=== PATIENT | female | born 1975 | race Caucasian/White ===

== ENCOUNTER 2018-10-18 06:13 | Emergency (ER) | payer BC ==
[2018-10-18 06:20] VITALS: RESP 18
--- NOTE | 2018-10-18 06:33 | ED ---
Chest Pain HPI - General Source: patient Mode of arrival: wheelchair Limitations: no limitations <Eduardo Anguiano - Last Filed: 10/18/18 06:31> - General Source: RN notes reviewed, old records reviewed <Kyler Mesa - Last Filed: 10/18/18 11:11> - General Chief Complaint: Chest Pain Stated Complaint: palpitations Time Seen by Provider: 10/18/18 06:31 - History of Present Illness Initial Comments: 43-year-old female presenting for evaluation of palpitations and chest tightness. Patient's symptoms began this morning, woke patient from sleep. She felt pounding in her ears, checked her pulse noted that it was quite elevated. She did report some mild chest tightness associated with this palpitation. No radiating chest pain. No arm pain. No jaw pain. No abdominal pain. No nausea vomiting. Patient denies any preceding symptoms, recent illnesses. She has history of hypertension currently on losartan. She also has history of sleep apnea reports that she was sleeping on her back when she awoke with this episode. She does not normally sleep on her back. (Kyler Mesa) - Related Data Home Medications Medication Instructions Recorded Confirmed Ibuprofen [Motrin Ib] 200 - 400 mg PO Q6HR PRN 10/18/18 10/18/18 Losartan Potassium [Cozaar] 25 mg PO HS 10/18/18 10/18/18 Multivitamins, Thera [Multivitamin 1 tab PO DAILY 10/18/18 10/18/18 (formulary)] Sertraline [Zoloft] 50 mg PO HS 10/18/18 10/18/18 Allergies Allergy/AdvReac Type Severity Reaction Status Date / Time levofloxacin [From Levaquin] AdvReac Unknown Verified 10/18/18 07:36 meperidine [From Demerol] AdvReac Rash/Hives Verified 10/18/18 07:36 ondansetron [From Zofran] AdvReac Unknown Verified 10/18/18 07:36 Review of Systems ROS Other: All systems not noted in ROS Statement are negative. <Eduardo Anguiano - Last Filed: 10/18/18 06:31> ROS Other: All systems not noted in ROS Statement are negative. <Kyler Mesa - Last Filed: 10/18/18 11:11> ROS Statement: Those systems with pertinent positive or pertinent negative responses have been documented in the HPI. EKG Findings - EKG Comments: EKG Findings:: EKG: Normal sinus rhythm, rate of 97, WV interval 158, QRS duration 86, QTC 431, no ST segment changes, there is T-wave inversion in V3 otherwise T waves are upright. <BonitaKyler Cristy - Last Filed: 10/18/18 11:11> Past Medical History Past Medical History: Hypertension Additional Past Medical History / Comment(s): degenerative disc disease, History of Any Multi-Drug Resistant Organisms: None Reported Past Surgical History: Back Surgery, Section, Cholecystectomy Past Psychological History: No Psychological Hx Reported Smoking Status: Never smoker Past Alcohol Use History: Rare Past Drug Use History: None Reported <Eduardo Anguiano - Last Filed: 10/18/18 06:31> General Exam Limitations: no limitations <Eduardo Anguiano - Last Filed: 10/18/18 06:31> General appearance: alert, in no apparent distress Head exam: Present: atraumatic, normocephalic Eye exam: Present: normal appearance, PERRL ENT exam: Present: normal exam Neck exam: Present: normal inspection. Absent: tenderness, meningismus Respiratory exam: Present: normal lung sounds bilaterally. Absent: respiratory distress, wheezes Cardiovascular Exam: Present: regular rate, normal rhythm, systolic murmur GI/Abdominal exam: Present: soft. Absent: distended, tenderness, guarding Extremities exam: Present: normal capillary refill. Absent: pedal edema, calf tenderness Neurological exam: Present: alert, oriented X3, CN II-XII intact, motor sensory deficit Psychiatric exam: Present: normal affect, normal mood Skin exam: Present: warm, dry, intact. Absent: cyanosis, diaphoretic <Kyler Mesa - Last Filed: 10/18/18 11:11> Course <Eduardo Anguiano - Last Filed: 10/18/18 06:31> <Kyler Mesa - Last Filed: 10/18/18 11:11> Vital Signs 10/18/18 10/18/18 06:15 10:57 Temperature 98.3 F 98.1 F Pulse Rate 99 85 Respiratory 18 18 Rate Blood Pressure 160/87 152/81 O2 Sat by Pulse 98 97 Oximetry - Reevaluation(s) Reevaluation #1: 10/18/18 06:31 INR 2 Patient care, I did review the ECG, the history, and ordered some initial tests. (MadieEduardo waterman) Chest Pain [facility] <MadieEduardo waterman - Last Filed: 10/18/18 06:31> <Kyler Mesa - Last Filed: 10/18/18 11:11> - MDM 43-year-old female history hypertension presenting with an episode of palpitations. Patient did not have chest pain, she reports some mild chest tightness. Symptoms completely resolved at the time of my evaluation. No dyspnea. EKG is normal sinus rhythm. Chest x-ray negative for any acute cardiopulmonary findings. Normal CBC, normal CMP, troponin negative. D-dimer mildly elevated 0.69. Normal CT angiography with no pulmonary embolism. I did discuss possibility of arrhythmia and offered observation, patient declined. Recommend patient present with her primary care physician for both tire recapper and possible sleep study given the onset of this symptoms. I did also discuss weight loss with this patient. She will monitor symptoms at home or return with worsening or changing symptoms (Kyler Mesa) Disposition <MadiecolumbaEduardo - Last Filed: 10/18/18 06:31> Is patient prescribed a controlled substance at d/c from ED?: No Time of Disposition: 10:10 <Kyler Mesa - Last Filed: 10/18/18 11:11> Clinical Impression: Palpitations Disposition: HOME SELF-CARE Condition: Good Instructions (If sedation given, give patient instructions): Heart Palpitations (ED) Additional Instructions: Patient will follow-up with primary care physician regarding possible tire recapper, possible sleep study. Referrals: Adilson Zhou MD [Primary Care Provider] - 1-2 days
[2018-10-18 07:02] LABS: Basophils # (A) 0.1 k/uL (0-0.2); Basophils % (A) 1 %; Eosinophils # (A) 0.5 k/uL (0-0.7); Eosinophils % (A) 5 %; HCT 42.3 % (34.0-46.0); HGB 13.7 gm/dL (11.4-16.0); Lymphocytes % (A) 20 %; MCHC 32.5 g/dL (31.0-37.0); MCV 95.5 fL (80.0-100.0); Mean Platelet Volume 7.3; Monocytes # (A) 0.6 k/uL (0-1.0); Monocytes % (A) 6 %; Neutrophils # (A) 6.7 k/uL (1.3-7.7); Neutrophils % (A) 67 %; Platelet Count 246 k/uL (150-450); RBC 4.43 m/uL (3.80-5.40); RDW 12.4 % (11.5-15.5)
[2018-10-18 07:17] LABS: ALT 31 U/L (9-52); AST 18 U/L (14-36); Alkaline Phosphatase 120 U/L (38-126); Anion Gap 8 mmol/L; Blood Urea Nitrogen 14 mg/dL (7-17); Calcium 9.6 mg/dL (8.4-10.2); Carbon Dioxide 30 mmol/L (22-30); Chloride 103 mmol/L (98-107); Glucose 120 mg/dL (74-99); Potassium 3.9 mmol/L (3.5-5.1); Sodium 141 mmol/L (137-145); Total Bilirubin 0.3 mg/dL (0.2-1.3); Total Protein 7.1 g/dL (6.3-8.2)
[2018-10-18 07:28] LABS: INR 0.8 (<1.2); Partial Thromboplastin Time 24.3 sec (22.0-30.0); Prothrombin Time 9.4 sec (9.0-12.0)
--- NOTE | 2018-10-18 08:10 | XR ---
EXAMINATION TYPE: XR chest 2V DATE OF EXAM: 10/18/2018 COMPARISON: 10/22/2009 INDICATION: Tachycardia TECHNIQUE: Frontal and lateral views of the chest are obtained. FINDINGS: The heart size is normal. The pulmonary vasculature is normal. The lungs are clear. IMPRESSION: 1. No acute pulmonary process.
[2018-10-18 08:42] LABS: D-Dimer 0.69 mg/L FEU (<0.60)
--- NOTE | 2018-10-18 09:35 | CT ---
CT CHEST FOR PULMONARY EMBOLISM. EXAMINATION TYPE: CT angio chest DATE OF EXAM: 10/18/2018 INDICATION: chest heaviness, palpitations CT DLP: 981.6 mGycm, Automated exposure control for dose reduction was used. CONTRAST: Patient injected with 100 mL of Isovue 370. COMPARISON: None TECHNIQUE: CT of the chest is performed on a spiral scan at 2 mm thick sections. Study is performed with intravenous contrast timed for evaluation for pulmonary embolism. This will limit additional po rtions of the evaluation. 3-D MIP images reconstructed by the technologist are reviewed on the compu ter in the coronal and sagittal planes. FINDINGS: No persistent filling defects are evident to suggest an acute pulmonary embolism. No mediastinal or hilar adenopathy enlarged by CT criteria is evident. The ascending aorta diameter at the level of the main pulmonary artery is 3.9 cm. The main pulmonary artery diameter at the bifur cation is 3.9 cm. Normal right heart strain is evident. Lung windows are clear. Limited CT section through the upper abdomen are unremarkable. IMPRESSIONS: 1. No acute pulmonary embolism.
[2018-10-18 11:03] VITALS: BP 152/81; PULSE 85; TEMP 98.1
== END 2018-10-18 11:03 | disposition home or self-care (01) ==
LOC: EC 06:13
DX: R00.2 Palpitations (principal); R07.89 Other chest pain; I10 Essential (primary) hypertension; Z79.899 Other long term (current) drug therapy; Z88.1 Allergy status to other antibiotic agents; Z88.5 Allergy status to narcotic agent; Z88.8 Allergy status to other drugs, medicaments and biological substances
CPT/HCPCS: 36415; 71046; 71275; 80053; 83735; 84484; 85025; 85379; 85610; 85730; 93005; 99285

== ENCOUNTER 2018-11-22 20:29 | Emergency (ER) | payer BC, OTHER ==
[2018-11-22 20:42] VITALS: RESP 18; TEMP 98.8
[2018-11-22 22:50] VITALS: BP 151/89; PULSE 80
--- NOTE | 2018-11-22 22:55 | US ---
EXAM: US Right Lower Extremity Non-Vascular - ultrasound right calf limited CLINICAL HISTORY: Reason: Pain, possible abscess, R calf TECHNIQUE: Real-time ultrasound scan of the right calf area of clinical concern with image documentation. COMPARISON: None available FINDINGS: Imaging in area of clinical concern about the right calf demonstrates small superficial fluid collection in the subcutaneous soft tissues measuring 1.0 x 0.4 x 0.4 cm. IMPRESSION: Small superficial subcutaneous fluid collection which may reflect small hematoma/seroma or possible abscess. Clinical correlation is recommended. <MYCVCSECTION> Critical Value Communications 11/22/18 23:00 Verify Receipt Verified receipt with NAVDEEP MEJIA in the ER for Dr. LOPEZ on 11/22 22:59 (-04:00)
--- NOTE | 2018-11-23 00:21 | ED ---
Animal Bite HPI - General Chief Complaint: Animal Bite Stated Complaint: Dog Bite Time Seen by Provider: 11/22/18 21:06 Source: patient Mode of arrival: ambulatory Limitations: no limitations - History of Present Illness Initial Comments: This patient's a 43-year-old woman who presents to be evaluated for dog bite to the right calf. The patient states the bite occurred 4 days ago. 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 The dog has had vaccinations. The patient did go and have evaluation by the urgent care. She was started on Augmentin. She went for a recheck, and as her leg was still swollen Bactrim was added at that point. It was also recommended to the patient that she be seen about having drainage of a possible abscess or hematoma. The patient states that she called 2 of the local surgeons who stated that they could not see her she therefore presents here. The patient denies any systemic symptoms, including no fever or chills, no palpitations, chest pain or dyspnea. The patient has had some drainage that she feels may be purulent. MD Complaint: animal bite -: days(s) Location: other (Right calf) Right: Leg Animal: dog Description: household pet, immunizations UTD, appeared well Mechanism: bite Pain Description: constant Context: other - Related Data Home Medications Medication Instructions Recorded Confirmed Ibuprofen [Motrin Ib] 200 - 400 mg PO Q6HR PRN 10/18/18 11/22/18 Losartan Potassium [Cozaar] 25 mg PO HS 10/18/18 11/22/18 Multivitamins, Thera [Multivitamin 1 tab PO DAILY 10/18/18 11/22/18 (formulary)] Sertraline [Zoloft] 50 mg PO HS 10/18/18 11/22/18 Albuterol Nebulized (Conc) 2.5 mg INHALATION RT-Q4H PRN 11/22/18 11/22/18 [Ventolin Nebulized (Conc)] Amoxic-Pot Clav 875-125Mg 1 tab PO BID 11/22/18 11/22/18 [Augmentin 875-125] Sulfamethox-Tmp 800-160Mg [Bactrim 1 tab PO BID 11/22/18 11/22/18 DS 800-160 mg] Allergies Allergy/AdvReac Type Severity Reaction Status Date / Time levofloxacin [From Levaquin] AdvReac Unknown Verified 11/22/18 20:56 meperidine [From Demerol] AdvReac Rash/Hives Verified 11/22/18 20:56 ondansetron [From Zofran] AdvReac Unknown Verified 11/22/18 20:56 Review of Systems ROS Statement: Those systems with pertinent positive or pertinent negative responses have been documented in the HPI. ROS Other: All systems not noted in ROS Statement are negative. Constitutional: Denies: fever, chills, weakness Respiratory: Denies: dyspnea Cardiovascular: Denies: chest pain, palpitations, edema, syncope Gastrointestinal: Denies: abdominal pain, vomiting Skin: Reports: as per HPI, lesions (Dog bite right calf) Past Medical History Past Medical History: Hypertension Additional Past Medical History / Comment(s): degenerative disc disease, History of Any Multi-Drug Resistant Organisms: None Reported Past Surgical History: Back Surgery, Section, Cholecystectomy Past Psychological History: No Psychological Hx Reported Smoking Status: Never smoker Past Alcohol Use History: Rare Past Drug Use History: None Reported General Exam Limitations: no limitations General appearance: alert, in no apparent distress Head exam: Present: atraumatic, normocephalic Respiratory exam: Present: normal lung sounds bilaterally. Absent: respiratory distress, wheezes, rales, rhonchi, stridor Cardiovascular Exam: Present: regular rate, normal rhythm, normal heart sounds Extremities exam: Present: tenderness Skin exam: Present: warm, dry, other (Patient does have 2 puncture wounds to the posterior aspect of the right calf. There is also small amount of ecchymosis. The area does have small amount of warmth but is not really erythematous. I was not able to express any drainage.) Course Vital Signs 11/22/18 11/22/18 20:31 22:49 Temperature 98.8 F Pulse Rate 88 80 Respiratory 18 18 Rate Blood Pressure 154/69 151/89 O2 Sat by Pulse 96 99 Oximetry Medical Decision Making - Medical Decision Making Patient is a 43-year-old woman who has had a dog bite to the right leg. Examination does reveal that there is a trace of warmth in the area overlying the bite but there is no erythema, and I was not able to express any purulent drainage. The patient had a bedside ultrasound that shows a very tiny fluid collection, the differential being a hematoma, seroma, or possible abscess. The area of the fluid collection is very small and I do not feel that it could be easily incised, and the patient is in agreement with this course At this point we'll have the patient use warm compresses to see if the fluid normal mobile acid surface. Also continue the double coverage of the antibiotics. We discussed appropriate further care and follow-up as well as return parameters. Disposition Clinical Impression: Dog bite, Abscess Disposition: HOME SELF-CARE Condition: Fair Instructions (If sedation given, give patient instructions): Animal Bite (ED) Is patient prescribed a controlled substance at d/c from ED?: No Referrals: Adilson Zhou MD [Primary Care Provider] - 1-2 days
== END 2018-11-23 00:39 | disposition home or self-care (01) ==
LOC: EC 20:29
DX: L02.415 Cutaneous abscess of right lower limb (principal); I10 Essential (primary) hypertension; Z88.1 Allergy status to other antibiotic agents; Z88.5 Allergy status to narcotic agent; Z88.8 Allergy status to other drugs, medicaments and biological substances; Z79.899 Other long term (current) drug therapy; W54.0XXA Bitten by dog, initial encounter; Y92.69 Other specified industrial and construction area as the place of occurrence of the external cause
CPT/HCPCS: 99283

== ENCOUNTER 2020-11-16 21:09 | Emergency (ER) | payer BC ==
--- NOTE | 2020-11-16 23:25 | ED ---
SOB HPI - General Chief Complaint: Shortness of Breath Stated Complaint: Covid+ Time Seen by Provider: 11/16/20 22:50 Source: patient Mode of arrival: wheelchair Limitations: no limitations - History of Present Illness Initial Comments: This patient is a 45-year-old woman who presents with a constellation of symptoms related to run a virus infection. The patient states that on November 09 she started having some body aches, fever, chills, cough. She has also subsequently had some diarrhea, including 3 bowel movements today. The patient states that she was feeling more fatigue and shortness of breath and phoned the distillation operator helper physician who recommended she be evaluated in the emergency department. MD Complaint: shortness of breath, cough Onset/Timin -: week(s) Consistency: constant Improves With: rest Worsens With: exertion Associated Symptoms: fever, cough Treatments Prior to Arrival: none - Related Data Home Medications Medication Instructions Recorded Confirmed Ibuprofen [Motrin Ib] 200 - 400 mg PO Q6HR PRN 10/18/18 11/22/18 Losartan Potassium [Cozaar] 25 mg PO HS 10/18/18 11/22/18 Multivitamins, Thera [Multivitamin 1 tab PO DAILY 10/18/18 11/22/18 (formulary)] Sertraline [Zoloft] 50 mg PO HS 10/18/18 11/22/18 Albuterol Nebulized (Conc) 2.5 mg INHALATION RT-Q4H PRN 11/22/18 11/22/18 [Ventolin Nebulized (Conc)] Amoxic-Pot Clav 875-125Mg 1 tab PO BID 11/22/18 11/22/18 [Augmentin 875-125] Sulfamethox-Tmp 800-160Mg [Bactrim 1 tab PO BID 11/22/18 11/22/18 DS 800-160 mg] Allergies Allergy/AdvReac Type Severity Reaction Status Date / Time droperidol Allergy Unknown Verified 11/16/20 21:32 levofloxacin [From Levaquin] AdvReac Unknown Verified 11/16/20 21:32 meperidine [From Demerol] AdvReac Rash/Hives Verified 11/16/20 21:32 ondansetron [From Zofran] AdvReac Unknown Verified 11/16/20 21:32 Review of Systems ROS Statement: Those systems with pertinent positive or pertinent negative responses have been documented in the HPI. ROS Other: All systems not noted in ROS Statement are negative. Constitutional: Reports: fever, chills Respiratory: Reports: cough, dyspnea. Denies: hemoptysis Cardiovascular: Denies: chest pain, palpitations, edema Endocrine: Reports: fatigue Gastrointestinal: Reports: diarrhea. Denies: abdominal pain, nausea, vomiting Genitourinary: Denies: dysuria, hematuria Musculoskeletal: Denies: back pain Skin: Denies: rash Neurological: Denies: headache Past Medical History Past Medical History: Hypertension Additional Past Medical History / Comment(s): degenerative disc disease, History of Any Multi-Drug Resistant Organisms: None Reported Past Surgical History: Back Surgery, Section, Cholecystectomy Past Psychological History: Anxiety Smoking Status: Never smoker Past Alcohol Use History: Rare Past Drug Use History: None Reported General Exam Limitations: no limitations General appearance: alert, in no apparent distress Head exam: Present: atraumatic, normocephalic Eye exam: Present: normal appearance. Absent: scleral icterus, conjunctival injection ENT exam: Present: normal oropharynx Respiratory exam: Present: rales. Absent: respiratory distress, wheezes, rhonchi, stridor Cardiovascular Exam: Present: regular rate, normal rhythm, normal heart sounds. Absent: systolic murmur, diastolic murmur, rubs, gallop GI/Abdominal exam: Present: soft. Absent: distended, tenderness, guarding, rebound, rigid Extremities exam: Present: normal inspection, normal capillary refill. Absent: pedal edema, calf tenderness Back exam: Present: normal inspection Neurological exam: Present: alert Skin exam: Present: warm, dry, intact, normal color. Absent: rash Course Vital Signs 11/16/20 11/16/20 11/16/20 21:27 22:14 23:49 Temperature 99.7 F H 98.6 F Pulse Rate 84 85 82 Respiratory 18 20 18 Rate Blood Pressure 148/78 125/84 O2 Sat by Pulse 94 L 95 94 L Oximetry 11/17/20 00:24 Temperature 99.3 F Pulse Rate 83 Respiratory 18 Rate Blood Pressure 146/82 O2 Sat by Pulse 92 L Oximetry Disposition Clinical Impression: COVID-19 Disposition: HOME SELF-CARE Condition: Good Instructions (If sedation given, give patient instructions): Coronavirus Disease 2019 (COVID-19) Is patient prescribed a controlled substance at d/c from ED?: No Referrals: Jamarcus Esparza DO [Primary Care Provider] - 1-2 days
[2020-11-16 23:51] VITALS: RESP 18
[2020-11-17] MEDS ORDERED: BAMLANIVIMAB (EUA) 700 MG, ETESEVIMAB (EUA) 1,400 MG in SODIUM CHLORIDE 0.9% 50 ML IVPB ONE (00:30)
[2020-11-17 02:04] VITALS: BP 149/91; PULSE 85; TEMP 99.4
== END 2020-11-17 02:27 | disposition home or self-care (01) ==
LOC: EC 21:09
DX: U07.1 COVID-19 (principal); I10 Essential (primary) hypertension; F41.9 Anxiety disorder, unspecified
CPT/HCPCS: 99284; 96365; Q0245

== ENCOUNTER → 2021-01-22 | Outpatient (CLI) | payer BC ==
[2021-01-22 14:18] VITALS: BP 138/79; PULSE 97; RESP 16; TEMP 98.6; BMI 64.0
--- NOTE | 2021-01-22 16:37 | P.HPBAR ---
Bariatric H&P - History & Physicial H&P Date: 01/22/21 History & Physicial: Visit/CC: initial Patient initial contact: Initial weight: 179.849 kg Initial weight in pounds: 396.50 Height: 5 ft 6 in Initial BMI: 64.0 Last weight: Current weight: 179.849 kg Current weight in pounds: 396.50 Current BMI: 64.0 [place] body weight (based on NIH guidelines): 58.967 kg Excess body weight loss: 0.0% The patient is a 45 year-old F who presents for Bariatric Assessment. The patient presents today after attending a recent bariatric seminar. The patient has struggled with her morbid obesity for the majority of her life. She has a BMI of 64. She suffers from hypertension, chronic back pain, degenerative joint disease, intermittent but rare reflux symptoms. Patient has a surgical history including laparoscopic cholecystectomy, , back. States she is due for a colonoscopy. Last upper endoscopy greater than 10 years ago. Denies history of DVT or dysphagia in the past. No tobacco use. Patient is interested in lap band placement. Patient states she has been considering this for some time and is not ready to commit to a more aggressive surgery like this sleeve gastrectomy or bypass. She believes those surgeries are more dangerous. She does have a family member who did poorly with a gastric bypass. She does have friends that done reportedly fair and good with the lap band in the past. She has a recent friend that went through conversion from band to sleep. Review of Systems The patient denies any acute changes in vision or hearing, no dysphagia or odynophagia, no chest pain or shortness of breath, no dysuria or hematuria, no headache, no runny nose, no rectal bleeding or melena, no unexplained weight loss Past Medical History Past Medical History: Hypertension Additional Past Medical History / Comment(s): degenerative disc disease, History of Any Multi-Drug Resistant Organisms: None Reported Past Surgical History: Back Surgery, Section, Cholecystectomy Past Psychological History: Anxiety Smoking Status: Never smoker Past Alcohol Use History: Rare Past Drug Use History: None Reported Surgical - Exam Vital Signs Temp Pulse Resp BP 98.6 F 97 16 138/79 01/22/21 14:15 01/22/21 14:15 01/22/21 14:15 01/22/21 14:15 Physical exam: General: Well-developed, well-nourished HEENT: Normocephalic, sclerae nonicteric Abdomen: Nontender, nondistended Extremities: No edema Neuro: Alert and oriented Bariatric Assessment & Plan (1) Morbid obesity with BMI of 60.0-69.9, adult Narrative/Plan: 45-year-old female with a straight of morbid obesity BMI at 64 currently. Patient is interested in pursuing surgical weight loss methods. We discussed both this past Tuesday and again today the risks and benefits of the 3 commonly performed bariatric procedures. She has been informed on multiple occasions that the lap band is not commonly performed at this point and that we have not, at our institution which used to perform many lap bands, performed a new lap band placement in several years. The patient says she is most concerned about the permanence of the staple procedures. She understands that the average weight loss and predictability of acceptable weight loss with the lap band is significantly less then the staple procedures. I informed her that long-term conversion from band to other procedures likely results in increased morbidity and decreased success. I stressed to her that given her higher BMI that success with lap band is even more unpredictable and likely less. Despite these conversation she remains interested and would like to have some time to think about it. She is required to have a supervised weight loss program. She has initiated that at this point. We decided that we likely would proceed with EGD and colonoscopy in the next 3-4 months. Colonoscopy for both screening reasons and family history of colon cancer in her grandmother. Patient will continue to consider what was discussed and contact me with questions. Second opinion to outside institution was also offered. Status: Acute Bariatric Checklist Checklist: Plan: Checklist: EGD: 1. Hiatal hernia: 2. H. Pylori: HgbA1c: Vitamin D: Smoking: Never smoker Primary care physician referral: Psychiatry clearance: Cardiology clearance: Sleep study: Diet journal: VTE risk score: VTE risk level: Rehab needs at discharge:
== END ==
LOC: BARWHC3 13:29
PROVIDERS: ATTEND Surgery
DX: E66.01 Morbid (severe) obesity due to excess calories (principal); Z68.44 Body mass index [BMI] 60.0-69.9, adult; I10 Essential (primary) hypertension; F41.9 Anxiety disorder, unspecified; Z88.6 Allergy status to analgesic agent; Z88.8 Allergy status to other drugs, medicaments and biological substances
CPT/HCPCS: 99203

== ENCOUNTER → 2021-06-22 | Outpatient (CLI) | payer BC ==
[2021-06-22 13:14] VITALS: BMI 63.1
== END ==
LOC: BARWHC3 08:59
PROVIDERS: ATTEND Surgery
DX: E66.01 Morbid (severe) obesity due to excess calories (principal); Z71.3 Dietary counseling and surveillance; Z68.44 Body mass index [BMI] 60.0-69.9, adult; Z88.1 Allergy status to other antibiotic agents; Z88.5 Allergy status to narcotic agent; Z88.8 Allergy status to other drugs, medicaments and biological substances
CPT/HCPCS: 97804

== ENCOUNTER 2021-06-23 10:54 | Day surgery (SDC) | payer BC ==
[2021-06-22 13:05] VITALS: BMI 61.9
[~2021-06-23 10:54] MED LIST: LACTATED RINGERS 1,000 ML IV SCH
[2021-06-23 11:50] VITALS: TEMP 97.9
[2021-06-23] MEDS ORDERED: PROPOFOL 10 MG/ML 20 ML VIAL IV ONE ×2 (12:10)
--- NOTE | 2021-06-23 12:14 | P.GSHP ---
History of Present Illness H&P Date: 06/23/21 Chief Complaint: GERD, presurgical 46-year-old female being evaluated for possible bariatric surgery. Patient with episodes of intermittent reflux at times. No abdominal pain. Does not take antiacids. Past Medical History Past Medical History: Hypertension, Osteoarthritis (OA), Sleep Apnea/CPAP/BIPAP Additional Past Medical History / Comment(s): degenerative disc disease, HEART MURMUR- NOT USING CPAP MACHINE, TROUBLE SWALLOWING AT TIMES History of Any Multi-Drug Resistant Organisms: None Reported Past Surgical History: Back Surgery, Section, Cholecystectomy Past Anesthesia/Blood Transfusion Reactions: Motion Sickness Smoking Status: Never smoker - Past Family History Mother Family Medical History: Cancer Additional Family Medical History / Comment(s): KIDNEY CANCER Medications and Allergies Home Medications Medication Instructions Recorded Confirmed Type Losartan Potassium [Cozaar] 25 mg PO HS 10/18/18 06/22/21 History Ibuprofen [Motrin] 600 mg PO DAILY PRN 06/22/21 06/22/21 History Allergies Allergy/AdvReac Type Severity Reaction Status Date / Time droperidol Allergy FEELING OF Verified 06/23/21 11:45 ELECTRICAL CURRENT GOING INTO BODY " levofloxacin [From Levaquin] AdvReac Unknown Verified 06/23/21 11:45 meperidine [From Demerol] AdvReac Rash/Hives Verified 06/23/21 11:45 Surgical - Exam Vital Signs Temp Pulse Resp BP Pulse Ox 97.9 F 89 16 173/86 95 06/23/21 11:48 06/23/21 11:48 06/23/21 11:48 06/23/21 11:48 06/23/21 11:48 Physical exam: General: Well-developed, well-nourished HEENT: Normocephalic, sclerae nonicteric Abdomen: Nontender, nondistended Extremities: No edema Neuro: Alert and oriented Assessment and Plan (1) GERD (gastroesophageal reflux disease) Narrative/Plan: Will proceed with upper endoscopy Current Visit: Yes Status: Acute Code(s): K21.9 - GASTRO-ESOPHAGEAL REFLUX DISEASE WITHOUT ESOPHAGITIS SNOMED Code(s): 922027657
--- NOTE | 2021-06-23 12:21 | P.PCN ---
Date of Procedure: 06/23/21 Procedure(s) Performed: Preoperative Dx: GERD, presurgical Postoperative Dx: Minimal gastritis Procedure: EGD with Bx Anesthesia: Sedation Endoscopist: Dr. Cooper Specimens: Antrum Endoscopic Procedure: The patient was on the endoscopy table in the left decubitus position. The Olympus gastroscope was inserted into the oropharynx and passed under direct visualization to the region of the third portion of the duodenum. From that point the scope was slowly withdrawn inspecting all surfaces carefully. There were no neoplastic inflammatory or polypoid lesions throughout the duodenum. The pylorus was widely patent. The stomach was carefully inspected. There was minimal gastritis present. A biopsy of the antrum took place to rule out H. pylori. Retroflexion revealed a normal hiatus. The esophagus was then carefully examined. There were no neoplastic inflammatory or polypoid lesions throughout the visualized esophagus. The patient was then taken to the recovery room in stable condition per anesthesia guidelines. Recommendations: Await biopsy results. Follow-up bariatric center
[2021-06-23 13:04] VITALS: BP 169/92; PULSE 79; RESP 18
== END 2021-06-23 13:28 | disposition home or self-care (01) ==
LOC: ORWHC2ENDO 10:54
PROVIDERS: ATTEND Surgery
DX: K29.50 Unspecified chronic gastritis without bleeding (principal); K21.00 Gastro-esophageal reflux disease with esophagitis, without bleeding; G47.30 Sleep apnea, unspecified; I10 Essential (primary) hypertension; M19.90 Unspecified osteoarthritis, unspecified site; Z79.1 Long term (current) use of non-steroidal anti-inflammatories (NSAID); Z88.1 Allergy status to other antibiotic agents; Z88.5 Allergy status to narcotic agent; Z90.49 Acquired absence of other specified parts of digestive tract
CPT/HCPCS: 43239; 81025; 88305; J2704

== ENCOUNTER → 2021-07-07 | Outpatient (CLI) | payer BC ==
[2021-07-07 15:19] VITALS: BP 168/95; PULSE 84; RESP 18; TEMP 98.3; BMI 62.6
--- NOTE | 2021-07-07 16:22 | P.BASOAP ---
Subjective Progress Note Date: 07/07/21 Principal diagnosis: Morbid obesity Patient returns for evaluation. Underwent a recent EGD showing minimal gastritis. Patient is now interested in sleeve gastrectomy. She does not want to proceed with gastric bypass as her sister underwent gastric bypass and gained all of her weight back. She also does not like the associated risks both short and long-term. Comorbidities include hypertension, chronic back pain, degenerative joint disease. Objective - Vital Signs Vital signs: Vital Signs Temp 98.3 F 07/07/21 15:13 Pulse 84 07/07/21 15:13 Resp 18 07/07/21 15:13 BP 168/95 07/07/21 15:13 Pulse Ox Intake & Output 07/06/21 07/07/21 07/07/21 18:59 06:59 18:59 Weight 175.903 kg - Exam Abdomen: Soft, nontender, nondistended Assessment/Plan (1) Morbid obesity with BMI of 60.0-69.9, adult Narrative/Plan: 46-year-old female remains interested in sleeve gastrectomy. We'll schedule for laparoscopic sleeve gastrectomy, possible open. The risks of bleeding, infection, stenosis, stricture, leak, abscess, fistula formation, peritonitis, poor weight loss, reflux, vomiting, conversion to an open procedure, aborting sleeve gastrectomy, [place], PE, DVT, and were discussed. The patient understands and wishes to proceed. Plan: Date: 07/07/21 Initial Weight: 179.849 kg Initial BMI: 64.0 Current Weight: 175.903 kg Current BMI: 62.6 Type of Surgery: Total Volume in Band: Previous Volume: Volume Removed: Volume Added: Band Size:
== END ==
LOC: BARWHC3 14:08
PROVIDERS: ATTEND Surgery
DX: E66.01 Morbid (severe) obesity due to excess calories (principal); I10 Essential (primary) hypertension; Z68.44 Body mass index [BMI] 60.0-69.9, adult; Z88.1 Allergy status to other antibiotic agents; Z88.5 Allergy status to narcotic agent
CPT/HCPCS: 99211

== ENCOUNTER → 2021-09-09 | Outpatient (CLI) | payer BC ==
[2021-09-09 22:34] LABS: Basophils # (A) 0.05 X 10*3/uL (0.00-0.10); Basophils % (A) 0.5 %; Eosinophils # (A) 0.22 X 10*3/uL (0.04-0.35); Eosinophils % (A) 2.3 %; HCT 45.2 % (37.2-46.3); HGB 14.3 g/dL (12.0-15.0); Lymphocytes # (A) 1.76 X 10*3/uL (0.90-5.00); Lymphocytes % (A) 18.4 %; MCH 30.7 pg (27.0-32.0); MCHC 31.6 g/dL (32.0-37.0); Monocytes # (A) 0.87 X 10*3/uL (0.20-1.00); Monocytes % (A) 9.1 %; Neutrophils # (A) 6.61 X 10*3/uL (1.80-7.70); Neutrophils % (A) 69.4 %; Platelet Count 277 X 10*3/uL (140-440); RBC 4.66 X 10*6/uL (4.10-5.20); WBC 9.54 X 10*3/uL (4.50-10.00)
[2021-09-09 23:20] LABS: African American GFR (CKD) 86.6 (60.0-200.0); Albumin 4.1 g/dL (3.8-4.9); Albumin/Globulin Ratio 1.31 (1.60-3.17); Anion Gap 11.4 mmol/L (10.00-18.00); BUN/Creat Ratio 13.46 Ratio (12.00-20.00); Blood Urea Nitrogen 12.3 mg/dL (9.0-27.0); Calcium 9.4 mg/dL (8.7-10.3); Carbon Dioxide 24.6 mmol/L (20.0-27.5); Globulin 3.2 g/dL (1.6-3.3); Non-African American GFR(CKD) 74.7 (60.0-200.0); Potassium 4.1 mmol/L (3.5-5.5); Total Bilirubin 0.4 mg/dL (0.30-1.20); Total Protein 7.3 g/dL (6.2-8.2)
== END | disposition home or self-care (01) ==
LOC: LABPAT 14:11
PROVIDERS: ATTEND Surgery
DX: Z01.812 Encounter for preprocedural laboratory examination (principal)
CPT/HCPCS: 36415; 80053; 85025

== ENCOUNTER 2021-09-28 13:00 | Outpatient (CLI) | payer BC ==
[2021-09-24 13:28] VITALS: BMI 60.0
--- NOTE | 2021-09-28 11:08 | P.GSHP ---
History of Present Illness H&P Date: 09/28/21 Chief Complaint: Morbid obesity 46-year-old female first seen in the bariatric clinic last January. Patient is interested in weight loss surgery. Initially she was considering lap band placement. After discussing anticipated average weight loss with the different surgeries she has decided to proceed with sleeve gastrectomy. Initial BMI of 64. Currently BMI of 60. Patient suffers from hypertension, chronic back pain, general joint disease, mild reflux symptoms. Previous surgeries including laparoscopic cholecystectomy, , back. Recent EGD showed minimal gastritis. No history of DVT or dysphagia. No tobacco use. Patient is not interested in gastric bypass since her sister apparently had this performed and did not do well with that. Past Medical History Past Medical History: Asthma, Hypertension, Osteoarthritis (OA), Sleep Apnea/CPAP/BIPAP Additional Past Medical History / Comment(s): degenerative disc disease, heart murmer, no cpap used-sleeps elevated, IBS, "dumping syndrome", COVD 10/2020, History of Any Multi-Drug Resistant Organisms: None Reported Past Surgical History: Back Surgery, Section, Cholecystectomy Past Anesthesia/Blood Transfusion Reactions: Motion Sickness Additional Past Anesthesia/Blood Transfusion Reaction / Comment(s): severe motion sickness, Smoking Status: Never smoker - Past Family History Father Family Medical History: Cancer Mother Family Medical History: Cancer Medications and Allergies Home Medications Medication Instructions Recorded Confirmed Type Losartan Potassium [Cozaar] 25 mg PO HS 10/18/18 09/24/21 History Ibuprofen [Motrin] 600 mg PO DAILY PRN 06/22/21 09/24/21 History Albuterol Inhaler [Ventolin Hfa 2 puff INHALATION Q4HR PRN 09/24/21 09/24/21 History Inhaler] Allergies Allergy/AdvReac Type Severity Reaction Status Date / Time droperidol Allergy FEELING OF Verified 09/24/21 13:15 ELECTRICAL CURRENT GOING INTO BODY " levofloxacin [From Levaquin] AdvReac jara/emoti Verified 09/24/21 13:15 onal meperidine [From Demerol] AdvReac Rash/Hives Verified 09/24/21 13:15 Surgical - Exam Physical exam: General: Well-developed, well-nourished HEENT: Normocephalic, sclerae nonicteric Abdomen: Nontender, nondistended Extremities: No edema Neuro: Alert and oriented Assessment and Plan (1) Morbid obesity with BMI of 60.0-69.9, adult Narrative/Plan: 46-year-old female with morbid obesity. We'll proceed with laparoscopic, possible open sleeve gastrectomy at this time. The risks of bleeding, infection, stenosis, stricture, leak, abscess, fistula formation, peritonitis, poor weight loss, reflux, vomiting, conversion to an open procedure, aborting sleeve gastrectomy, [place], PE, DVT, and were discussed. The patient understands and wishes to proceed. Current Visit: No Status: Acute Code(s): E66.01 - MORBID (SEVERE) OBESITY DUE TO EXCESS CALORIES; Z68.44 - BODY MASS INDEX [BMI] 60.0-69.9, ADULT SNOMED Code(s): 067348562
[2021-09-28 11:47] VITALS: BP 165/81; PULSE 91; RESP 18; TEMP 98.3
[2021-09-28 12:02] LABS: Glucose,Whole Blood 88 mg/dL (75-99)
[~2021-09-28 13:00] MED LIST changes: +DEXAMETHASONE SOD PHOSPHATE 4 MG/ML 1 ML VIAL IV ONE; +ENOXAPARIN 40 MG/0.4 ML SYRINGE SQ PRN; +HYDROmorphone 0.5 MG/0.5 ML SYRINGE IVP PRN; +MIDAZOLAM 2 MG/2 ML VIAL IV PRN; +ONDANSETRON 4 MG/2 ML VIAL IVP ONE; +SCOPOLAMINE 1.5MG/72HR PATCH TRANSDERM ONE; +ceFAZolin 3 GM in SODIUM CHLORIDE 0.9% 100 ML IVPB PRN
--- NOTE | 2021-09-28 15:32 | P.PN ---
Progress Note - Text Progress Note Date: 09/28/21 Patient was in preop today. They were having difficulty getting IV access. Covid test was performed and unfortunately came back positive. Discussed findings with patient. Have postponed surgery for now. She will see her primary care physician. If patient remains asymptomatic Will try to get back on the schedule in 2-4 weeks.
== END 2021-09-28 13:10 | disposition home or self-care (01) ==
LOC: BARWHC3 13:00 → UNDODISIN 13:10 → BARWHC3 13:10
PROVIDERS: ATTEND Surgery
DX: E66.01 Morbid (severe) obesity due to excess calories (principal); J45.909 Unspecified asthma, uncomplicated; I10 Essential (primary) hypertension; M19.90 Unspecified osteoarthritis, unspecified site; Z68.44 Body mass index [BMI] 60.0-69.9, adult; Z79.51 Long term (current) use of inhaled steroids; Z88.1 Allergy status to other antibiotic agents; Z88.5 Allergy status to narcotic agent; Z88.8 Allergy status to other drugs, medicaments and biological substances
CPT/HCPCS: 87635

== ENCOUNTER → 2021-10-29 | Outpatient (CLI) | payer BC ==
[2021-10-29 23:01] LABS: Basophils # (A) 0.04 X 10*3/uL (0.00-0.10); Basophils % (A) 0.4 %; Eosinophils # (A) 0.18 X 10*3/uL (0.04-0.35); Eosinophils % (A) 1.8 %; HGB 13.6 g/dL (12.0-15.0); Immature Grans, Automated 0.2 %; Lymphocytes # (A) 1.62 X 10*3/uL (0.90-5.00); Lymphocytes % (A) 16.3 %; MCH 31.6 pg (27.0-32.0); MCHC 32.4 g/dL (32.0-37.0); MCV 97.4 fL (80.0-97.0); Mean Platelet Volume 11.2 fL (9.5-12.2); Monocytes # (A) 0.87 X 10*3/uL (0.20-1.00); Monocytes % (A) 8.8 %; NRBC Per 100 WBC 0 /100 WBCS (0.0-0.0); Neutrophils % (A) 72.5 %; Platelet Count 277 X 10*3/uL (140-440); RBC 4.31 X 10*6/uL (4.10-5.20); RDW 12.4 % (11.5-14.5); WBC 9.93 X 10*3/uL (4.50-10.00)
[2021-10-30 00:53] LABS: Albumin 4.2 g/dL (3.8-4.9); Albumin/Globulin Ratio 1.65 (1.60-3.17); Anion Gap 15.7 mmol/L (10.00-18.00); BUN/Creat Ratio 11.65 Ratio (12.00-20.00); Calcium 9.4 mg/dL (8.7-10.3); Carbon Dioxide 21.3 mmol/L (20.0-27.5); Globulin 2.5 g/dL (1.6-3.3); Non-African American GFR(CKD) 64.7 (60.0-200.0); Potassium 3.8 mmol/L (3.5-5.5); Total Bilirubin 0.4 mg/dL (0.30-1.20); Total Protein 6.7 g/dL (6.2-8.2)
== END | disposition home or self-care (01) ==
LOC: LABPAT 15:46
PROVIDERS: ATTEND Surgery
DX: Z01.812 Encounter for preprocedural laboratory examination (principal)
CPT/HCPCS: 80053; 85025

== ENCOUNTER 2021-11-02 10:33 | Inpatient (IN) | payer BC ==
[~2021-11-02 10:33] MED LIST changes: -DEXAMETHASONE SOD PHOSPHATE 4 MG/ML 1 ML VIAL IV ONE; -HYDROmorphone 0.5 MG/0.5 ML SYRINGE IVP PRN; -LACTATED RINGERS 1,000 ML IV SCH; +LIDOCAINE 1% (10MG/ML) FOR IV START INTRADERMA PRN; -SCOPOLAMINE 1.5MG/72HR PATCH TRANSDERM ONE
[2021-11-02 11:16] LABS: Glucose,Whole Blood 87 mg/dL (75-99)
--- NOTE | 2021-11-02 11:18 | P.GSHP ---
History of Present Illness H&P Date: 11/02/21 Chief Complaint: Morbid obesity 46-year-old female here today for elective sleeve gastrectomy. She was initially scheduled in September but was canceled because of a positive Covid test. Patient never did develop any symptoms from that. Patient was seen initially in the bariatric center in January of last year. Initially she wanted a lap band placed. We discussed average weight loss expectations and the patient became more interested in sleeve gastrectomy. Despite the patient's higher BMI she is not interested in gastric bypass as she had a sister who did not do well with that surgery. Patient suffers from hypertension, sleep apnea, asthma, chronic back pain, osteoarthritis, mild reflux symptoms. No history of DVT, dysphagia, or tobacco use. Past Medical History Past Medical History: Asthma, Hypertension, Osteoarthritis (OA), Sleep Apnea/CPAP/BIPAP Additional Past Medical History / Comment(s): degenerative disc disease, "bad knees", heart murmer, no cpap used-sleeps elevated, IBS, "dumping syndrome", COVD 10/2020, History of Any Multi-Drug Resistant Organisms: None Reported Past Surgical History: Back Surgery, Section, Cholecystectomy Past Anesthesia/Blood Transfusion Reactions: Motion Sickness Additional Past Anesthesia/Blood Transfusion Reaction / Comment(s): severe motion sickness, Smoking Status: Never smoker - Past Family History Mother Family Medical History: Cancer Father Family Medical History: Cancer Medications and Allergies Home Medications Medication Instructions Recorded Confirmed Type Losartan Potassium [Cozaar] 25 mg PO HS 10/18/18 10/28/21 History Ibuprofen [Motrin] 600 mg PO DAILY PRN 06/22/21 10/28/21 History Albuterol Inhaler [Ventolin Hfa 2 puff INHALATION Q4HR PRN 09/24/21 10/28/21 History Inhaler] Norethindrone Acetate 5 mg PO HS 10/28/21 10/28/21 History [Norethindrone AC (Lupaneta)] Allergies Allergy/AdvReac Type Severity Reaction Status Date / Time droperidol Allergy FEELING OF Verified 11/02/21 10:59 ELECTRICAL CURRENT GOING INTO BODY " levofloxacin [From Levaquin] AdvReac jara/emoti Verified 11/02/21 10:59 onal meperidine [From Demerol] AdvReac Rash/Hives Verified 11/02/21 10:59 Surgical - Exam Vital Signs Temp Pulse Resp BP Pulse Ox 97.8 F 95 20 169/74 98 11/02/21 11:11 11/02/21 11:11 11/02/21 11:11 11/02/21 11:11 11/02/21 11:11 Physical exam: General: Well-developed, well-nourished HEENT: Normocephalic, sclerae nonicteric Abdomen: Nontender, nondistended Extremities: No edema Neuro: Alert and oriented Assessment and Plan (1) Morbid obesity with BMI of 60.0-69.9, adult Narrative/Plan: 46-year-old female with morbid obesity. We'll proceed with laparoscopic, possible open sleeve gastrectomy at this time. The risks of bleeding, infection, stenosis, stricture, leak, abscess, fistula formation, peritonitis, poor weight loss, reflux, vomiting, conversion to an open procedure, aborting sleeve gastrectomy, [place], PE, DVT, and were discussed. The patient understands and wishes to proceed. Current Visit: No Status: Acute Code(s): E66.01 - MORBID (SEVERE) OBESITY DU E TO EXCESS CALORIES; Z68.44 - BODY MASS INDEX [BMI] 60.0-69.9, ADULT SNOMED Code(s): 193162006
[2021-11-02] MEDS: LACTATED RINGERS 1,000 ML IV SCH ×2 (11:23→12:04)
[2021-11-02] MEDS ORDERED: SCOPOLAMINE 1.5MG/72HR PATCH TRANSDERM ONE (11:25)
[2021-11-02] MEDS: DEXAMETHASONE SOD PHOSPHATE 4 MG/ML 1 ML VIAL IV ONE ×2 (11:59→19:16)
[2021-11-02] MEDS ORDERED: METHYLENE BLUE 10 MG/ML (10 ML VIAL) ONE (12:00)
[2021-11-02] MEDS ORDERED: NEOSTIGMINE 1 MG/ML 10 ML VIAL ONE (12:00)
[2021-11-02] MEDS ORDERED: SUCCINYLCHOLINE CHLORIDE VIAL 200 MG/10 ML VIAL IV ONE (12:00)
[2021-11-02] MEDS ORDERED: ROCURONIUM 10 MG/ML (5 ML VIAL) IV ONE (12:00)
[2021-11-02] MEDS ORDERED: GLYCOPYRROLATE 0.2 MG/ML 2 ML VIAL ONE (12:00)
[2021-11-02] MEDS ORDERED: MIDAZOLAM 2 MG/2 ML VIAL ONE (12:00)
[2021-11-02] MEDS ORDERED: PROPOFOL 10 MG/ML 20 ML VIAL IV ONE (12:00)
[2021-11-02] MEDS ORDERED: ACETAMINOPHEN IV (For NPO) 1,000 MG/100 ML VIAL ONE (12:00)
[2021-11-02] MEDS ORDERED: fentaNYL (PF) 50 MCG/ML 2 ML AMP ONE (12:00)
[2021-11-02] MEDS ORDERED: KETAMINE 10 MG/ML 20 ML VIAL ONE (12:00)
[2021-11-02] MEDS ORDERED: LIDOCAINE 1% INJ 10MG/ML (20 ML MDV) ONE (12:00)
[2021-11-02] MEDS ORDERED: BUPIVACAIN-EPI 0.25%-1:200,000 30 ML VIAL SQ ONE ×2 (12:38)
[2021-11-02] MEDS ORDERED: HYOSCYAMINE ORAL DROPS 1.875 MG/15 ML BOTTLE PO PRN (13:57)
[2021-11-02] MEDS ORDERED: diphenhydrAMINE 50 MG/ML 1 ML VIAL IVP PRN (13:57)
[2021-11-02] MEDS ORDERED: NALOXONE 0.4 MG/ML 1 ML VIAL IV PRN (13:57)
--- NOTE | 2021-11-02 14:02 | P.OP ---
Date of Procedure: 11/02/21 Procedure(s) Performed: PREOPERATIVE DIAGNOSIS: Morbid obesity, hypertension, asthma, sleep apnea, arthritis, GERD POSTOPERATIVE DIAGNOSIS: Same PROCEDURE: Laparoscopic sleeve gastrectomy SURGEON: Allison EBL: Minimal ANESTHESIA: General COMPLICATIONS: None OPERATIVE PROCEDURE: Patient was placed in the operating table in the supine position. She was placed under general anesthesia at that time. The abdomen was prepped and draped in sterile fashion after the patient was placed in lithotomy. A 5 mm optical trocar was used to enter the abdominal cavity in the left upper quadrant. Insufflation took place to 15 millimeters mercury. An additional right subxiphoid 5 mm trocar was then placed under direct visualization and then removed. 2 additional 5 mm trochars were placed in the right upper quadrant and left upper quadrant under direct visualization and a 15 mm trocar in the supraumbilical location. The liver was retracted using a medium Paresh liver retractor through the right subxiphoid trocar site. The hiatus was inspected. The patient had no visible hiatal hernia At that point I moved to the mid aspect of the greater curvature the stomach. The short gastric vasculature was divided using a LigaSure device proximally. I then switched and divided the short gastrics distally to a 3-4 cm from the pylorus. The dissection took place up to the left diaphragmatic crura at that point. The posterior short gastrics were likewise divided using the LigaSure device. The anterior gastric fat pad was dissected medially. Once the stomach was fully mobilized the blunt tipped 40-Barbadian bougie dilator was advanced into the stomach and advanced all the way to the prepyloric location. A black echelon 60 stapler with echelon Endopath staple line reinforcement was utilized and fired tangentially across the antrum taking care to avoid narrowing at the incisura angularis. Subsequent firings of the green echelon 60 stapler with echelon Endopath staple line reinforcement took place proximally staying on the outer edge of our dilator. A single black load and 5 green loads were used in this case. The oral gastric tube was reinserted. The stomach was insufflated with approximately 100 mL of methylene blue. No evidence of leak or obstruction was seen. Tisseel fibrin glue was used along the length of the staple line. The stomach remnant was removed from the 15 mm trocar site without difficulty. The fascia at the 15 more site was closed using interrupted 0 Vicryl sutures with the laparoscopic suture passer and Dylan Manisha technique. The insufflation was evacuated. The skin at all 5 incisions were closed using 4-0 Monocryl sutures. Skin glue was then applied. DISPOSITION: Stable to recovery room
[2021-11-02] MEDS ORDERED: ONDANSETRON 4 MG/2 ML VIAL IVP ONE (14:23)
[2021-11-02] MEDS: ACETAMINOPHEN IV (For NPO) 1,000 MG in EMPTY BAG 1 BAG IVPB SCH ×3 (14:37→19:29)
[2021-11-02] MEDS ORDERED: ENALAPRILAT 1.25 MG/ML 1 ML VIAL IV ONE ×2 (14:53→15:07)
[2021-11-02] MEDS ORDERED: diphenhydrAMINE 50 MG/ML 1 ML VIAL IVP ONE (15:43)
[2021-11-02] MEDS ORDERED: LABETALOL 5 MG/ML VIAL MDV IVP ONE (15:56)
[2021-11-02] MEDS: HYDROmorphone 0.5 MG/0.5 ML SYRINGE IVP PRN ×3 (16:54→22:53)
[2021-11-02] MEDS: ALBUTEROL NEBULIZED 2.5 MG/3 ML INHALATION SCH ×2 (19:16→21:44)
[2021-11-02] MEDS: 0.9% NACL WITH KCL 20 MEQ/L 1,000 ML IV SCH (22:00)
[2021-11-02] MEDS: ENOXAPARIN 40 MG/0.4 ML SYRINGE SQ SCH (22:47)
[2021-11-02] MEDS: ONDANSETRON 4 MG/2 ML VIAL IVP PRN (22:47)
[2021-11-02] MEDS: SIMETHICONE 40 MG/0.6 ML DROPS 2,000 MG/30 ML BOTTLE PO PRN (22:48)
[2021-11-03] MEDS: ACETAMINOPHEN IV (For NPO) 1,000 MG in EMPTY BAG 1 BAG IVPB SCH ×5 (00:14→23:53)
[2021-11-03] MEDS: LACTATED RINGERS 1,000 ML IV SCH (01:11)
[2021-11-03] MEDS: 0.9% NACL WITH KCL 20 MEQ/L 1,000 ML IV SCH ×5 (01:55→20:29)
[2021-11-03] MEDS: HYDROmorphone 0.5 MG/0.5 ML SYRINGE IVP PRN ×2 (02:28→05:45)
[2021-11-03] MEDS: ONDANSETRON 4 MG/2 ML VIAL IVP PRN ×2 (05:45→12:24)
[2021-11-03] MEDS: ALBUTEROL NEBULIZED 2.5 MG/3 ML INHALATION SCH ×4 (07:24→20:21)
[2021-11-03] MEDS ORDERED: BENZOCAINE/MENTHOL LOZENG 1 EACH LOZENGE MUCOUS MEM PRN (08:18)
[2021-11-03] MEDS: PANTOPRAZOLE 40 MG/10 ML VIAL IV SCH (08:38)
[2021-11-03] MEDS: KETOROLAC 15 MG/ML 1 ML VIAL IVP SCH ×4 (08:38→23:55)
[2021-11-03 09:32] LABS: Basophils # (A) 0.02 X 10*3/uL (0.00-0.10); Basophils % (A) 0.1 %; Eosinophils # (A) 0 X 10*3/uL (0.04-0.35); Eosinophils % (A) 0 %; HCT 39.9 % (37.2-46.3); HGB 12.9 g/dL (12.0-15.0); Immature Grans, Automated 0.3 %; Lymphocytes # (A) 1.23 X 10*3/uL (0.90-5.00); Lymphocytes % (A) 8.6 %; MCH 31.2 pg (27.0-32.0); MCHC 32.3 g/dL (32.0-37.0); MCV 96.4 fL (80.0-97.0); Mean Platelet Volume 10.6 fL (9.5-12.2); Monocytes # (A) 0.89 X 10*3/uL (0.20-1.00); Monocytes % (A) 6.2 %; NRBC Per 100 WBC 0 /100 WBCS (0.0-0.0); Neutrophils # (A) 12.09 X 10*3/uL (1.80-7.70); Neutrophils % (A) 84.8 %; Platelet Count 292 X 10*3/uL (140-440); RBC 4.14 X 10*6/uL (4.10-5.20); RDW 12.4 % (11.5-14.5); WBC 14.27 X 10*3/uL (4.50-10.00)
--- NOTE | 2021-11-03 10:14 | P.PN ---
Subjective Progress Note Date: 11/03/21 CHIEF COMPLAINT: Status post laparoscopic sleeve gastrectomy HISTORY OF PRESENT ILLNESS: This a 46-year-old female with a history of morbid obesity who presented for outpatient scheduled laparoscopic sleeve gastrectomy. She is postop day #1. She was complaining of some nausea with dry heaves. She believes it was related to the Dilaudid. She is being transitioned to Toradol. She denies any flatus or bowel movement. She does have some surgical pain present. She has been up to the bathroom 1-2 times. She denies any shortness of breath or chest pain. Upper GI series ordered, pending results. Patient has been nothing by mouth. She's been afebrile. Labs are pending. Patient was wearing 2 L of oxygen per nasal cannula through the night. She does have a history of sleep apnea, no previous home O2 or CPAP. 96% now on room air. PHYSICAL EXAM: VITAL SIGNS: Reviewed. GENERAL: Well-developed in no acute distress. HEENT: No sclera icterus. Extraocular movements grossly intact. Moist buccal mucosa. Head is atraumatic, normocephalic. ABDOMEN: Soft. Obese. Nondistended. Nontender. Surgical incisions well approximated, clean dry and intact. Abdominal binder. NEUROLOGIC: Alert and oriented. Cranial nerves II through XII grossly intact. ASSESSMENT: 1. Postop day #1 laparoscopic sleeve gastrectomy 2. Morbid obesity 3. Hypertension 4. Asthma 5. Sleep apnea 6. Arthritis 7. GERD PLAN: 1. Upper GI series ordered 2. Keep nothing by mouth at this time, will advance to bariatric clears based on upper GI series 3. Toradol added 4. Encourage ambulation 5. Incentive spirometer at bedside, encourage use The impression and plan of care has been dictated as directed. Dr. Cooper I performed a history and examination of this patient, discussed the same with the dictator. I agree with the dictator's note ,documented as a scribe. Any additional findings or plans will be noted. I have personally seen and examined the patient, reviewed the CUSTOMER SERVICE CASHIER /PAs history, exam and MDM and agree with the assessment and plan as written. Based on total visit time, I have performed more than 50% of the visit. As above: Patient doing well at this time. Upper GI without leak or obstruction. Continue bariatric liquids. Ambulate. Recheck white blood cell count tomorrow. Objective - Vital Signs Vital signs: Vital Signs Temp 98.1 F 11/03/21 01:39 Pulse 99 11/03/21 01:39 Resp 15 11/03/21 01:39 BP 148/81 11/03/21 01:39 Pulse Ox 98 11/03/21 01:39 Intake & Output 11/02/21 11/03/21 11/03/21 18:59 06:59 18:59 Intake Total 1100 Output Total 320 Balance 780 Weight 168 kg 168 kg Intake: IV 1100 Output: Urine 300 Estimated Blood Loss 20 Other: Voiding Method Toilet # Voids 4 - Labs CBC & Chem 7: 11/03/21 03:48 11/03/21 03:48
[2021-11-03 10:27] LABS: African American GFR (CKD) 120.3 (60.0-200.0); Anion Gap 13.7 mmol/L (10.00-18.00); Blood Urea Nitrogen 6.3 mg/dL (9.0-27.0); Calcium 8.9 mg/dL (8.7-10.3); Carbon Dioxide 19.3 mmol/L (20.0-27.5); Non-African American GFR(CKD) 103.8 (60.0-200.0); Phosphorus 3.1 mg/dL (2.4-5.1); Potassium 3.9 mmol/L (3.5-5.5)
--- NOTE | 2021-11-03 10:31 | FL ---
EXAMINATION TYPE: FL UGI DATE OF EXAM: 11/03/2021 LIMITED UGI: CLINICAL HISTORY: Morbid Obesity, gastric sleeve surgery yesterday. TECHNIQUE: Limited esophagram is performed utilizing 20 oz of Isovue-370. A total of 66 seconds of f luoroscopic time was utilized during procedure and 128 images obtained. COMPARISON: CTA chest October 18, 2018. FINDINGS: The patient swallowed contrast without difficulty or delay. Esophageal peristalsis and mo tility are within normal limits. There is good flow of contrast along the diaphragmatic hiatus into proximal stomach and subsequent flow into gastric sleeve through the proximal anastomosis. There is m ild delay in flow from distal sleeve and anastomosis into pylorus and duodenal sweep. Patient was karen seous before procedure without increased nausea or vomiting. There is no evidence of contrast extrava sation to suggest leak. Cholecystectomy clips are incidentally redemonstrated. IMPRESSION: No evidence of leak or significant obstruction status post recent gastric sleeve surgery.
[2021-11-03] MEDS ORDERED: ALBUTEROL NEBULIZED 2.5 MG/3 ML INHALATION PRN (12:07)
--- NOTE | 2021-11-03 12:12 | P.CONS ---
History of Present Illness - Reason for Consult Hyponatremia, leukocytosis - History of Present Illness 46-year-old female admitted for laparoscopic sleeve gastrectomy. Postoperatively patient was having a lot of pain. His bit better today patient didn't pass gas yet. Patient does have leukocytosis mild hyponatremia. Patient denied any fever chills dysuria. Patient doesn't have any signs or symptoms of infection at this time. She is burping but did not pass any gas yet REVIEW OF SYSTEMS: CONSTITUTIONAL: No fever, no malaise, no fatigue. HEENT: No recent visual problems or hearing problems. Denied any sore throat. CARDIOVASCULAR: No chest pain, orthopnea, PND, no palpitations, no syncope. PULMONARY: No shortness of breath, no cough, no hemoptysis. GASTROINTESTINAL: No diarrhea, , no vomiting NEUROLOGICAL: No headaches, no weakness, no numbness. HEMATOLOGICAL: Denies any bleeding or petechiae. GENITOURINARY: Denies any burning micturition, frequency, or urgency. MUSCULOSKELETAL/RHEUMATOLOGICAL: Denies any joint pain, swelling, or any muscle pain. ENDOCRINE: Denies any polyuria or polydipsia. The rest of the 14-point review of systems is negative. PHYSICAL EXAMINATION: GENERAL: The patient is alert and oriented x3, not in any acute distress. Obese HEENT: Pupils are round and equally reacting to light. EOMI. No scleral icterus. No conjunctival pallor. Normocephalic, atraumatic. No pharyngeal erythema. No thyromegaly. CARDIOVASCULAR: S1 and S2 present. No murmurs, rubs, or gallops. PULMONARY: Chest is clear to auscultation, no wheezing or crackles. ABDOMEN: Abdominal binder in place, sluggish bowel sounds. MUSCULOSKELETAL: No joint swelling or deformity. EXTREMITIES: No cyanosis, clubbing, or pedal edema. NEUROLOGICAL: Gross neurological examination did not reveal any focal deficits. SKIN: No rashes. Assessment and plan -Leukocytosis: Reactive seconded to surgery is no clinical evidence of any infection at this time. Patient's Cope catheter was removed. -Hyponatremia secondary to hypovolemia patient is receiving IV fluids in the form of normal saline plus potassium which is appropriate. -Hypertension patient will be resumed on losartan -Gastroesophageal reflux disease -Morbid obesity patient underwent laparoscopic sleeve gastrectomy -As well without any acute exacerbation -Sleep apnea patient will continue with his CPAP machine. DVT prophylaxis: She and is on Lovenox 40 mg twice a day subcutaneous which is appropriate dosing Past Medical History Past Medical History: Asthma, Hypertension, Osteoarthritis (OA), Sleep Apnea/CPAP/BIPAP Additional Past Medical History / Comment(s): degenerative disc disease, "bad knees", heart murmer, no cpap used-sleeps elevated, IBS, "dumping syndrome", COVD 10/2020, History of Any Multi-Drug Resistant Organisms: None Reported Past Surgical History: Back Surgery, Section, Cholecystectomy Past Anesthesia/Blood Transfusion Reactions: Motion Sickness Additional Past Anesthesia/Blood Transfusion Reaction / Comm: severe motion sickness, Past Psychological History: Anxiety Additional Psychological History / Comment(s): "mild anxiety" Smoking Status: Never smoker Past Alcohol Use History: Rare Past Drug Use History: None Reported - Past Family History Mother Family Medical History: Cancer Father Family Medical History: Cancer Medications and Allergies Home Medications Medication Instructions Recorded Confirmed Type Losartan Potassium [Cozaar] 25 mg PO HS 10/18/18 11/02/21 History Ibuprofen [Motrin] 600 mg PO DAILY PRN 06/22/21 11/02/21 History Albuterol Inhaler [Ventolin Hfa 2 puff INHALATION Q4HR PRN 09/24/21 11/02/21 History Inhaler] Norethindrone Acetate 5 mg PO HS 10/28/21 11/02/21 History [Norethindrone AC (Lupaneta)] Allergies Allergy/AdvReac Type Severity Reaction Status Date / Time droperidol Allergy FEELING OF Verified 11/02/21 10:59 ELECTRICAL CURRENT GOING INTO BODY " levofloxacin [From Levaquin] AdvReac jara/emoti Verified 11/02/21 10:59 onal meperidine [From Demerol] AdvReac Rash/Hives Verified 11/02/21 10:59 Physical Exam Vitals: Vital Signs Temp Pulse Resp BP Pulse Ox 11/03/21 08:00 98.5 F 92 16 150/79 96 11/03/21 01:39 98.1 F 99 15 148/81 98 11/02/21 21:45 97 11/02/21 19:08 98.3 F 93 16 145/81 96 11/02/21 18:07 98.3 F 86 152/89 96 11/02/21 17:16 82 16 156/72 96 11/02/21 17:01 89 16 168/74 98 11/02/21 16:46 85 16 154/70 98 11/02/21 16:30 82 16 169/79 98 11/02/21 16:15 81 16 168/81 97 11/02/21 16:00 75 16 175/81 96 11/02/21 15:46 88 16 172/79 97 11/02/21 15:12 82 16 169/75 99 11/02/21 15:06 80 16 179/83 97 11/02/21 15:00 84 16 182/83 96 11/02/21 14:30 81 16 168/84 97 11/02/21 14:15 81 16 166/81 99 11/02/21 13:58 96.8 F L 79 14 176/84 98 Intake and Output 11/02/21 11/03/21 11/03/21 22:59 06:59 14:59 Output Total 300 Balance -300 Output: Urine 300 Other: Voiding Method Toilet Toilet # Voids 4 Weight 168 kg Results CBC & Chem 7: 11/03/21 03:48 11/03/21 03:48 Labs: Abnormal Lab Results - Last 24 Hours (Table) 11/03/21 11/03/21 Range/Units 03:48 03:48 WBC 14.27 H (4.50-10.00) X 10*3/uL Neutrophils # 12.09 H (1.80-7.70) X 10*3/uL Eosinophils # 0 L (0.04-0.35) X 10*3/uL Sodium 134 L (135-145) mmol/L Carbon Dioxide 19.3 L (20.0-27.5) mmol/L BUN 6.3 L (9.0-27.0) mg/dL
[2021-11-03] MEDS: ENOXAPARIN 40 MG/0.4 ML SYRINGE SQ SCH ×2 (12:25→23:55)
[2021-11-03 15:05] VITALS: BMI 58.8
[2021-11-03 15:37] LABS: Magnesium 1.9 mg/dL (1.5-2.4)
[2021-11-03] MEDS: LOSARTAN 25 MG TAB PO SCH (21:11)
[2021-11-03] MEDS: SIMETHICONE 40 MG/0.6 ML DROPS 2,000 MG/30 ML BOTTLE PO PRN (23:55)
[2021-11-04] MEDS: 0.9% NACL WITH KCL 20 MEQ/L 1,000 ML IV SCH ×3 (05:02→23:21)
[2021-11-04] MEDS: KETOROLAC 15 MG/ML 1 ML VIAL IVP SCH ×4 (05:02→23:21)
[2021-11-04] MEDS: ACETAMINOPHEN IV (For NPO) 1,000 MG in EMPTY BAG 1 BAG IVPB SCH ×4 (05:02→23:21)
[2021-11-04] MEDS: LACTATED RINGERS 1,000 ML IV SCH (05:03)
[2021-11-04] MEDS ORDERED: bisacodyL 5 MG TABLET.DR PO PRN (08:00)
[2021-11-04] MEDS: ALBUTEROL NEBULIZED 2.5 MG/3 ML INHALATION SCH ×4 (09:38→20:28)
[2021-11-04 10:13] LABS: Basophils # (A) 0.02 X 10*3/uL (0.00-0.10); Basophils % (A) 0.2 %; Eosinophils # (A) 0.15 X 10*3/uL (0.04-0.35); Eosinophils % (A) 1.7 %; HGB 11.7 g/dL (12.0-15.0); Immature Grans, Automated 0.2 %; Lymphocytes # (A) 1.79 X 10*3/uL (0.90-5.00); Lymphocytes % (A) 20.5 %; MCH 31.6 pg (27.0-32.0); MCHC 31.6 g/dL (32.0-37.0); Mean Platelet Volume 10.4 fL (9.5-12.2); Monocytes # (A) 0.71 X 10*3/uL (0.20-1.00); Monocytes % (A) 8.1 %; NRBC Per 100 WBC 0 /100 WBCS (0.0-0.0); Neutrophils # (A) 6.04 X 10*3/uL (1.80-7.70); Neutrophils % (A) 69.3 %; Platelet Count 234 X 10*3/uL (140-440); RDW 12.6 % (11.5-14.5); WBC 8.73 X 10*3/uL (4.50-10.00)
[2021-11-04] MEDS: ENOXAPARIN 40 MG/0.4 ML SYRINGE SQ SCH ×2 (11:18→23:22)
[2021-11-04] MEDS: PANTOPRAZOLE 40 MG/10 ML VIAL IV SCH (11:18)
--- NOTE | 2021-11-04 12:22 | P.PN ---
Subjective Progress Note Date: 11/04/21 CHIEF COMPLAINT: Status post laparoscopic sleeve gastrectomy HISTORY OF PRESENT ILLNESS: This a 46-year-old female with a history of morbid obesity who presented for outpatient scheduled laparoscopic sleeve gastrectomy. She is postop day #2. She has been tolerating her bariatric clear liquid diet. She denies any nausea or vomiting. States she still having abdominal pain. She did pass flatus, no bowel movement. States she has been up and ambulating in the hallway this morning. WBC 8.7 hemoglobin 11.7 platelet count 234,000. She's been afebrile. There is report of 450, also oral intake yesterday VITAL SIGNS: Reviewed. GENERAL: Well-developed in no acute distress. HEENT: No sclera icterus. Extraocular movements grossly intact. Moist buccal mucosa. Head is atraumatic, normocephalic. ABDOMEN: Soft. Obese. Nondistended. Mild surgical tenderness. Positive bowel sounds. Surgical incisions well approximated, clean dry and intact. Abdominal binder. NEUROLOGIC: Alert and oriented. Cranial nerves II through XII grossly intact. ASSESSMENT: 1. Postop day #2 laparoscopic sleeve gastrectomy 2. Morbid obesity 3. Hypertension 4. Asthma 5. Sleep apnea 6. Arthritis 7. GERD PLAN: 1. Continue bariatric Clear liquid diet 2. Encourage ambulation 3. Incentive spirometer at bedside, encourage use 4. Continue IV fluids 5. Continue IV acetaminophen The impression and plan of care has been dictated as directed. Dr. Cooper I performed a history and examination of this patient, discussed the same with the dictator. I agree with the dictator's note ,documented as a scribe. Any additional findings or plans will be noted. I have personally seen and examined the patient, reviewed the PUBLIC HEALTH DIETITIAN /PAs history, exam and MDM and agree with the assessment and plan as written. Based on total visit time, I have performed more than 50% of the visit. As above: Patient complains of fatigue. Says she did have a better night than the night before. Some bloating. She is passing flatus. She did ambulate in the hallways. Labs noted and are improving. Continue bariatric liquids. Possible discharge tomorrow. Objective - Vital Signs Vital signs: Vital Signs Temp 97.7 F 11/04/21 08:00 Pulse 69 11/04/21 11:03 Resp 16 11/04/21 10:49 BP 119/67 11/04/21 08:00 Pulse Ox 98 11/04/21 10:49 Intake & Output 11/03/21 11/04/21 11/04/21 18:59 06:59 18:59 Intake Total 1350 Balance 1350 Weight 168 kg Intake: Intake, IV Titration 900 Amount 0.9% NaCl with KCl 20 Meq 800 /l 1,000 ml @ 100 mls/hr IV .Q10H SISSY Rx#: [id number] ACETAMINOPHEN IV (For NPO 100 ) 1,000 mg In Empty Bag 1 bag @ 400 mls/hr IVPB Q6HR [facility] Rx#:[id number] Oral 450 Other: Voiding Method Toilet Toilet # Voids 4 2 - Labs CBC & Chem 7: 11/04/21 06:49 11/03/21 03:48 Labs: Abnormal Lab Results - Last 24 Hours (Table) 11/04/21 Range/Units 06:49 RBC 3.70 L (4.10-5.20) X 10*6/uL Hgb 11.7 L (12.0-15.0) g/dL Hct 37.0 L (37.2-46.3) % MCV 100.0 H (80.0-97.0) fL MCHC 31.6 L (32.0-37.0) g/dL
--- NOTE | 2021-11-04 18:31 | P.PN ---
Subjective Progress Note Date: 11/04/21 - Reason for Consult Hyponatremia, leukocytosis - History of Present Illness 46-year-old female admitted for laparoscopic sleeve gastrectomy. Postopera tively patient was having a lot of pain. His bit better today patient didn't pass gas yet. Patient does have leukocytosis mild hyponatremia. Patient denied any fever chills dysuria. Patient doesn't have any signs or symptoms of infection at this time. She is burping but did not pass any gas yet 11/04/2021 Patient is seen and evaluated in follow-up today lethargic although easily arousable. Patient underwent upper GI today with no obstruction noted. Patient tolerating bariatric clear liquids. Incentive spirometer at the bedside and encourage the patient to continue using at least 10 times every hour while awake. Encouraged increased activity as tolerated. Patient reports to passing gas but has not had a bowel movement yet. She continues with abdominal discomfort although improved from yesterday. Review of systems: Constitutional: No reports of fatigue, fever, or chills Cardiovascular: No reports of chest pain or palpitations Respiratory: No reports of shortness of breath or cough GI: reports of mild nausea, no reports of vomiting, tolerating diet, reports of gas with no bowel movement yet : No reports of dysuria or retention Neurovascular: reports of Generalized weakness All medications have been reviewed Active Medications Albuterol Sulfate (Albuterol Nebulized 2.5 Mg/3 Ml) 2.5 mg INHALATION RT-QID SISSY Last Admin: 11/04/21 10:50 Dose: 2.5 mg Documented by: Albuterol Sulfate (Albuterol Nebulized 2.5 Mg/3 Ml) 2.5 mg INHALATION RT-Q4H PRN PRN Reason: sob Benzocaine/Menthol (Benzocaine/Menthol Lozeng 1 Each Lozenge) 1 each MUCOUS MEM Q6HR PRN PRN Reason: Sore Throat Last Admin: 11/03/21 10:15 Dose: 1 each Documented by: Bisacodyl (Bisacodyl 5 Mg Tablet.) 15 mg PO ONCE PRN PRN Reason: Constipation Diphenhydramine HCl (Diphenhydramine 50 Mg/Ml 1 Ml Vial) 25 mg IVP Q6HR PRN PRN Reason: Itching Last Admin: 11/02/21 15:36 Dose: 12.5 mg Documented by: Enoxaparin Sodium (Enoxaparin 40 Mg/0.4 Ml Syringe) 40 mg SQ Q12H [facility] Last Admin: 11/04/21 11:18 Dose: 40 mg Documented by: Hydromorphone HCl (Hydromorphone 0.5 Mg/0.5 Ml Syringe) 0.5 mg IVP Q3HR PRN PRN Reason: Pain Last Admin: 11/03/21 05:45 Dose: 0.5 mg Documented by: Hyoscyamine (Hyoscyamine Oral Drops 1.875 Mg/15 Ml Bottle) 0.125 mg PO Q6HR PRN PRN Reason: Esophageal Spasm Lactated Ringer's (Lactated Ringers) 1,000 mls @ 20 mls/hr IV .Q24H [facility] Last Admin: 11/04/21 05:03 Dose: Not Given Documented by: Potassium Chloride/Sodium Chloride (Ns-Kcl 20 Meq/L Iv Solution) 1,000 mls @ 100 mls/hr IV .Q10H [facility] Last Admin: 11/04/21 05:02 Dose: 100 mls/hr Documented by: Acetaminophen 1,000 mg/ IV (Solution) 100 mls @ 400 mls/hr IVPB Q6HR [facility] Last Admin: 11/04/21 11:18 Dose: 400 mls/hr Documented by: Ketorolac Tromethamine (Ketorolac 15 Mg/Ml 1 Ml Vial) 15 mg IVP Q6HR [facility] Stop: 11/06/21 07:59 Last Admin: 11/04/21 12:39 Dose: 15 mg Documented by: Lidocaine HCl (Lidocaine 1% (10mg/Ml) For Iv Start) 0.1 ml INTRADERMA PER PROTOCOL PRN PRN Reason: IV Start Losartan Potassium (Losartan 25 Mg Tab) 25 mg PO HS [facility] Last Admin: 11/03/21 21:11 Dose: 25 mg Documented by: Naloxone HCl (Naloxone 0.4 Mg/Ml 1 Ml Vial) 0.2 mg IV Q2M PRN PRN Reason: Opioid Reversal Ondansetron HCl (Ondansetron 4 Mg/2 Ml Vial) 4 mg IVP Q6HR PRN PRN Reason: Nausea And Vomiting Last Admin: 11/03/21 12:24 Dose: 4 mg Documented by: Pantoprazole Sodium (Pantoprazole 40 Mg/10 Ml Vial) 40 mg IV DAILY [facility] Last Admin: 11/04/21 11:18 Dose: 40 mg Documented by: Simethicone (Simethicone 40 Mg/0.6 Ml Drops 2,000 Mg/30 Ml Bottle) 40 mg PO Q6HR PRN PRN Reason: Bloating Last Admin: 11/03/21 23:55 Dose: 40 mg Documented by: PHYSICAL EXAMINATION: GENERAL: The patient is alert and oriented x3, not in any acute distress. Obese HEENT: Pupils are round and equally reacting to light. EOMI. No scleral icterus. No conjunctival pallor. Normocephalic, atraumatic. No pharyngeal erythema. No thyromegaly. CARDIOVASCULAR: S1 and S2 present. No murmurs, rubs, or gallops. PULMONARY: Chest is clear to auscultation, no wheezing or crackles. ABDOMEN: Abdominal binder in place, sluggish bowel sounds. MUSCULOSKELETAL: No joint swelling or deformity. EXTREMITIES: No cyanosis, clubbing, or pedal edema. NEUROLOGICAL: Gross neurological examination did not reveal any focal deficits. SKIN: No rashes. Assessment: -Leukocytosis: Reactive secondary to surgery, improved and is 8.73 today -Hyponatremia secondary to hypovolemia patient is receiving IV fluids in the form of normal saline plus potassium which is appropriate. -Hypertension, losartan resumed -Gastroesophageal reflux disease -Morbid obesity patient underwent laparoscopic sleeve gastrectomy -Asthma without any acute exacerbation -Sleep apnea patient will continue with his CPAP machine. -DVT prophylaxis: Lovenox 40 mg twice a day subcutaneous plan: Recommend to continue with current medications and management per surgery services. Patient is maintained on bariatric clear liquid diet and will continue. Patient is lethargic although arousable. Patient mostly lying in bed although reports to getting up and walking around with her walker. Encouraged increase activity as tolerated. CBC within normal limits today and white blood count improved at 8.73. Patient is afebrile and other labs within normal limits. Will continue to follow with general surgery during hospitalization. Thank you for this consultation. The impression and plan of care has been dictated by Jena Adams, Nurse Practitioner as directed. Dr. Sriram MD I have performed a history and examination and MDM of this patient, discussed the same with the dictator, and agree with the dictator's assessment and plan as written ,documented as a scribe. Based on total visit time, I have performed more than 50% of the visit. Objective - Vital Signs Vital signs: Vital Signs Temp 97.7 F 11/04/21 08:00 Pulse 71 11/04/21 08:00 Resp 16 11/04/21 08:00 BP 119/67 11/04/21 08:00 Pulse Ox 95 11/04/21 08:00 Intake & Output 11/03/21 11/04/21 11/04/21 18:59 06:59 18:59 Intake Total 1350 Balance 1350 Weight 168 kg Intake: Intake, IV Titration 900 Amount 0.9% NaCl with KCl 20 Meq 800 /l 1,000 ml @ 100 mls/hr IV .Q10H [facility] Rx#: [id number] ACETAMINOPHEN IV (For NPO 100 ) 1,000 mg In Empty Bag 1 bag @ 400 mls/hr IVPB Q6HR [facility] Rx#:[id number] Oral 450 Other: Voiding Method Toilet Toilet # Voids 4 2 - Labs CBC & Chem 7: 11/04/21 06:49 11/03/21 03:48 Labs: Abnormal Lab Results - Last 24 Hours (Table) 11/03/21 Range/Units 03:48 Sodium 134 L (135-145) mmol/L Carbon Dioxide 19.3 L (20.0-27.5) mmol/L BUN 6.3 L (9.0-27.0) mg/dL
[2021-11-04] MEDS: LOSARTAN 25 MG TAB PO SCH (20:22)
[2021-11-05 02:14] VITALS: RESP 16; TEMP 98.5
[2021-11-05] MEDS: ACETAMINOPHEN IV (For NPO) 1,000 MG in EMPTY BAG 1 BAG IVPB SCH ×2 (05:19→11:21)
[2021-11-05] MEDS: KETOROLAC 15 MG/ML 1 ML VIAL IVP SCH ×2 (05:19→11:26)
[2021-11-05] MEDS: LACTATED RINGERS 1,000 ML IV SCH (05:20)
[2021-11-05] MEDS: PANTOPRAZOLE 40 MG/10 ML VIAL IV SCH (07:05)
[2021-11-05 08:49] VITALS: BP 148/78
[2021-11-05] MEDS: ALBUTEROL NEBULIZED 2.5 MG/3 ML INHALATION SCH ×3 (09:24→16:49)
[2021-11-05 09:26] VITALS: PULSE 72
--- NOTE | 2021-11-05 10:46 | P.PN ---
Subjective 46-year-old female admitted for laparoscopic sleeve gastrectomy. Postoperatively patient was having a lot of pain. His bit better today patient didn't pass gas yet. Patient does have leukocytosis mild hyponatremia. Patient denied any fever chills dysuria. Patient doesn't have any signs or symptoms of infection at this time. She is burping but did not pass any gas yet 11/04/2021 Patient is seen and evaluated in follow-up today lethargic although easily arousable. Patient underwent upper GI today with no obstruction noted. Patient tolerating bariatric clear liquids. Incentive spirometer at the bedside and encourage the patient to continue using at least 10 times every hour while awake. Encouraged increased activity as tolerated. Patient reports to passing gas but has not had a bowel movement yet. She continues with abdominal discomfort although improved from yesterday. Subjective: Resume the care of the patient today. 11/06/2011 Patient is awake and alert but she is little drowsy this morning, she had some cough night because some sharp epigastric abdominal pain. She is status post laparoscopic sleeve gastrectomy. Today is postoperative day #2. However this morning she has no abdominal pain, no significant nausea vomiting and she tolerates diet, she couldn't finish 50% of her meals. And she is hemodynamically stable. Hemoglobin looks stable with slightly dropped most likely secondary to hematoma delusion 12.9 down to 11.7. Rest of labs look stable. She is kept on normal saline half normal saline with potassium. She is still on liquid diet Objective - Vital Signs Vital signs: Vital Signs Temp 98.5 F 11/05/21 08:00 Pulse 72 11/05/21 09:35 Resp 16 11/05/21 08:00 BP 148/78 11/05/21 08:00 Pulse Ox 96 11/05/21 08:00 Intake & Output 11/04/21 11/05/21 11/05/21 18:59 06:59 18:59 Other: Voiding Method Toilet # Voids 4 - Exam -GENERAL: The patient is alert and oriented x3, not in any acute distress. Morbidly obese HEENT: Pupils are round and equally reacting to light. EOMI. No scleral icterus. No conjunctival pallor. Normocephalic, atraumatic. No pharyngeal erythema. No thyromegaly. CARDIOVASCULAR: S1 and S2 present. No murmurs, rubs, or gallops. PULMONARY: Chest is clear to auscultation, no wheezing or crackles. ABDOMEN: Soft, nontender, nondistended, normoactive bowel sounds. No palpable organomegaly. MUSCULOSKELETAL: No joint swelling or deformity. EXTREMITIES: No cyanosis, clubbing, or pedal edema. NEUROLOGICAL: Gross neurological examination did not reveal any focal deficits. SKIN: No rashes. no petechiae. - Labs CBC & Chem 7: 11/04/21 06:49 11/03/21 03:48 Labs: Abnormal Lab Results - Last 24 Hours (Table) 11/04/21 Range/Units 06:49 RBC 3.70 L (4.10-5.20) X 10*6/uL Hgb 11.7 L (12.0-15.0) g/dL Hct 37.0 L (37.2-46.3) % MCV 100.0 H (80.0-97.0) fL MCHC 31.6 L (32.0-37.0) g/dL Assessment and Plan Assessment: Morbid obesity, status post laparoscopic sleeve surgery. Hypertension GERD History of asthma, not an active issue History of sleep apnea on CPAP machine at home Plan: This is a pleasant 46 years old female status post lap sleeve gastrostomy Continue with liquid diet, symptomatic treatment. Continue gentle hydration Surgery primary team on the case Labs and medication were reviewed.. Continue same treatment. Continue with symptomatic treatment. Resume home medication. Monitor lytes and vitals. DVT and GI prophylaxis. Further recommendationsas per clinical course of the patient DVT prophylaxis: Subcutaneous Lovenox GI Prophylaxis: Ppi
[2021-11-05] MEDS: ENOXAPARIN 40 MG/0.4 ML SYRINGE SQ SCH (11:22)
--- NOTE | 2021-11-05 12:02 | P.DS ---
Providers Date of admission: 11/02/21 10:33 Expected date of discharge: 11/05/21 Attending physician: Leeroy Cooper Consults: 11/02/21 13:57 Consult Physician Routine Consulting Provider: Josee Bhatia Consult Reason/Comments: med mgmt Do you want consulting provider notified?: Yes Primary care physician: Adilson Zhou Hospital Course: Discharge diagnosis: Morbid obesity status post laparoscopic sleeve gastrectomy Hospital course: This is a 46-year-old female who presented for elective laparoscopic sleeve gastrectomy for morbid obesity, hypertension, osteoarthritis, and sleep apnea. She is postop day #3. She is doing well with her bariatric clear liquid diet. She's been up and ambulating. States she still has some postsurgical abdominal pain but it is well managed with her Toradol. She denies any nausea or vomiting. She states that she had to soft loose bowel movements yesterday. She is passing flatus. She has been afebrile. I have personally seen and examined the patient, reviewed the SALVAGE WINDER /PAs history, exam and MDM and agree with the assessment and plan as written. Based on total visit time, I have performed more than 50% of the visit. As above: Patient doing well today. She would like to go home. She is tolerating over 40 ounces of liquid so far. Pain is mild at this time. December discharge. Follow-up nursing bariatric visit on Tuesday. Follow-up with myself in 11/16. Procedures: Laparoscopic sleeve gastrectomy Patient Condition at Discharge: Stable Plan - Discharge Summary Discharge Rx Participant: Yes New Discharge Prescriptions: New bisacodyL [Dulcolax] 15 mg PO ONCE PRN tab PRN Reason: Constipation Hyoscyamine Oral Drops [Levsin Drops] 0.125 mg PO Q6HR PRN #15 ml PRN Reason: Esophageal Spasm traMADol HCL [Ultram] 50 mg PO Q6HR PRN 3 Days #12 tab PRN Reason: Severe Breakthrough Pain Simethicone 40 mg/0.6 ml Drops [Mylicon Drops] 40 mg PO Q6HR PRN #30 ml PRN Reason: Bloating Continue Losartan Potassium [Cozaar] 25 mg PO HS Albuterol Inhaler [Ventolin Hfa Inhaler] 2 puff INHALATION Q4HR PRN PRN Reason: sob Norethindrone Acetate [Norethindrone AC (Lupaneta)] 5 mg PO HS Ibuprofen [Motrin] 600 mg PO DAILY PRN PRN Reason: Pain Discharge Medication List Losartan Potassium [Cozaar] 25 mg PO HS 10/18/18 [History] Ibuprofen [Motrin] 600 mg PO DAILY PRN 06/22/21 [History] Albuterol Inhaler [Ventolin Hfa Inhaler] 2 puff INHALATION Q4HR PRN 09/24/21 [History] Norethindrone Acetate [Norethindrone AC (Lupaneta)] 5 mg PO HS 10/28/21 [History] Hyoscyamine Oral Drops [Levsin Drops] 0.125 mg PO Q6HR PRN #15 ml 11/05/21 [Rx] Simethicone 40 mg/0.6 ml Drops [Mylicon Drops] 40 mg PO Q6HR PRN #30 ml 11/05/21 [Rx] bisacodyL [Dulcolax] 15 mg PO ONCE PRN tab 11/05/21 [Rx] traMADol HCL [Ultram] 50 mg PO Q6HR PRN 3 Days #12 tab 11/05/21 [Rx] Follow up [facility]ment(s[facility] [place] [facility] (Please call to schedule appointment . Left message no return call) Patient Instructions/Handouts: Nutrition after Bariatric Surgery (DC), Laparoscopic Sleeve Gastrectomy (DC) Activity/Diet/Wound Care/Special Instructions: Liquid diet only for 2 weeks May Shower. No soaking in bath tubs 2 weeks Continue to use incentive spirometry to prevent pneumonias. Please continue to ambulate at home to prevent blood clots in legs. Please notify your surgeon if you develop nausea and vomiting including new onset of abdominal pain. No lifting over 4 pounds in 4 weeks Drink 64 oz of fluid daily. Start protein shakes on . Notify bariatric center for temp over 101.0, increased pain, drainage from incisions. No straws or carbonated beverages. Liquid diet only. Sugar content should be less than 6 g to avoid dumping syndrome. Take MOM for constipation. Take Tylenol for pain. CRUSH, OPEN, OR CUT TABLETS LARGER THAN A SIZE OF A TIC TAC Discharge Disposition: HOME SELF-CARE
[2021-11-05] MEDS: 0.9% NACL WITH KCL 20 MEQ/L 1,000 ML IV SCH (12:05)
== END 2021-11-05 17:02 | disposition home or self-care (01) | DRG 620 ==
LOC: 2ORMAIN 10:33 → 4SSUR 17:25
PROVIDERS: ADMIT Surgery; ATTEND Surgery
PROC: 0DB64Z3 Excision of Stomach, Percutaneous Endoscopic Approach, Vertical (ICD-10-PCS; principal; 2021-11-02 12:05)
PROC: 05HD33Z Insertion of Infusion Device into Right Cephalic Vein, Percutaneous Approach (ICD-10-PCS; 2021-11-04 12:00)
DX: E66.01 Morbid (severe) obesity due to excess calories (principal); E87.1 Hypo-osmolality and hyponatremia; G47.30 Sleep apnea, unspecified; Z68.44 Body mass index [BMI] 60.0-69.9, adult; D72.829 Elevated white blood cell count, unspecified; E86.1 Hypovolemia; I10 Essential (primary) hypertension; M19.90 Unspecified osteoarthritis, unspecified site; K21.9 Gastro-esophageal reflux disease without esophagitis; J45.909 Unspecified asthma, uncomplicated; G89.29 Other chronic pain; M54.9 Dorsalgia, unspecified; F41.9 Anxiety disorder, unspecified; Z79.899 Other long term (current) drug therapy; Z90.49 Acquired absence of other specified parts of digestive tract; Z86.16 Personal history of COVID-19; Z87.19 Personal history of other diseases of the digestive system; Z98.891 History of uterine scar from previous surgery; Z98.890 Other specified postprocedural states; Z71.3 Dietary counseling and surveillance; Z88.1 Allergy status to other antibiotic agents; Z88.5 Allergy status to narcotic agent; Z88.8 Allergy status to other drugs, medicaments and biological substances; Z80.9 Family history of malignant neoplasm, unspecified
CPT/HCPCS: 36410; 74240; 76937; 80051; 82310; 82565; 83735; 84100; 84520; 84703; 85025; 88307; 94640; 94760

== ENCOUNTER → 2021-11-09 | Outpatient (CLI) | payer BC ==
[2021-11-09 14:16] VITALS: BP 159/84; PULSE 94; TEMP 98.2
[2021-11-09 14:51] VITALS: BMI 59.8
== END ==
LOC: BARWHC3 12:38
PROVIDERS: ATTEND Surgery
DX: E66.01 Morbid (severe) obesity due to excess calories (principal); J45.909 Unspecified asthma, uncomplicated; I10 Essential (primary) hypertension; M19.90 Unspecified osteoarthritis, unspecified site; Z98.84 Bariatric surgery status; Z68.43 Body mass index [BMI] 50.0-59.9, adult; F41.9 Anxiety disorder, unspecified; Z88.1 Allergy status to other antibiotic agents; Z88.8 Allergy status to other drugs, medicaments and biological substances
CPT/HCPCS: 97803; 99211

== ENCOUNTER → 2021-11-09 | Outpatient (CLI) | payer BC ==
[2021-11-09] MEDS: SODIUM CHLORIDE 0.9% 1,000 ML IV ONE ×2 (13:01→14:04)
[2021-11-09 13:08] VITALS: BP 159/84; PULSE 94; RESP 16; TEMP 97.7
[2021-11-09 13:21] LABS: Basophils # (A) 0.1 k/uL (0-0.2); Basophils % (A) 0 %; Eosinophils # (A) 0.3 k/uL (0-0.7); Eosinophils % (A) 3 %; HCT 48.1 % (34.0-46.0); HGB 15.4 gm/dL (11.4-16.0); Lymphocytes # (A) 1.2 k/uL (1.0-4.8); Lymphocytes % (A) 11 %; MCH 32.6 pg (25.0-35.0); MCHC 32.1 g/dL (31.0-37.0); MCV 101.6 fL (80.0-100.0); Mean Platelet Volume 8.2; Monocytes # (A) 0.6 k/uL (0-1.0); Monocytes % (A) 5 %; Neutrophils # (A) 8.9 k/uL (1.3-7.7); Neutrophils % (A) 79 %; Platelet Count 337 k/uL (150-450); RBC 4.74 m/uL (3.80-5.40); RDW 12.5 % (11.5-15.5); WBC 11.2 k/uL (3.8-10.6)
[2021-11-09 13:50] LABS: African American GFR (CKD) >90 (>60 ml/min/1.73 sqM); Anion Gap 13 mmol/L; Blood Urea Nitrogen 15 mg/dL (7-17); Calcium 9.2 mg/dL (8.4-10.2); Carbon Dioxide 21 mmol/L (22-30); Chloride 103 mmol/L (98-107); Glucose 91 mg/dL (74-99); Non-African American GFR(CKD) 87 (>60 ml/min/1.73 sqM); Sodium 137 mmol/L (137-145)
[2021-11-09 13:58] LABS: Potassium 3.9 mmol/L (3.5-5.1)
== END ==
LOC: PROCWHC3 12:35
PROVIDERS: ATTEND Surgery Plastic and Reconstructive Surgery
DX: E86.0 Dehydration (principal); Z88.1 Allergy status to other antibiotic agents; Z88.5 Allergy status to narcotic agent; Z88.8 Allergy status to other drugs, medicaments and biological substances
CPT/HCPCS: 36415; 80048; 85025; 96360; 96361

== ENCOUNTER → 2021-12-08 | Outpatient (CLI) | payer BC ==
[2021-12-09 01:07] LABS: Basophils # (A) 0.03 X 10*3/uL (0.00-0.10); Basophils % (A) 0.4 %; Eosinophils # (A) 0.21 X 10*3/uL (0.04-0.35); Eosinophils % (A) 2.5 %; HCT 42.2 % (37.2-46.3); HGB 13.8 g/dL (12.0-15.0); Immature Grans, Automated 0.4 %; Lymphocytes # (A) 1.66 X 10*3/uL (0.90-5.00); Lymphocytes % (A) 19.9 %; MCH 31.5 pg (27.0-32.0); MCHC 32.7 g/dL (32.0-37.0); MCV 96.3 fL (80.0-97.0); Mean Platelet Volume 12.6 fL (9.5-12.2); Monocytes # (A) 0.67 X 10*3/uL (0.20-1.00); NRBC Per 100 WBC 0 /100 WBCS (0.0-0.0); Neutrophils # (A) 5.74 X 10*3/uL (1.80-7.70); Neutrophils % (A) 68.8 %; Platelet Count 251 X 10*3/uL (140-440); RBC 4.38 X 10*6/uL (4.10-5.20); RDW 12.3 % (11.5-14.5); WBC 8.34 X 10*3/uL (4.50-10.00)
[2021-12-09 01:59] LABS: African American GFR (CKD) 101.8 (60.0-200.0); Albumin 4.2 g/dL (3.8-4.9); Albumin/Globulin Ratio 1.31 (1.60-3.17); Anion Gap 14.4 mmol/L (10.00-18.00); BUN/Creat Ratio 12.13 Ratio (12.00-20.00); Blood Urea Nitrogen 9.7 mg/dL (9.0-27.0); Calcium 9.6 mg/dL (8.7-10.3); Carbon Dioxide 20.6 mmol/L (20.0-27.5); Globulin 3.2 g/dL (1.6-3.3); Non-African American GFR(CKD) 87.8 (60.0-200.0); Potassium 3.3 mmol/L (3.5-5.5); Total Bilirubin 0.4 mg/dL (0.30-1.20); Total Protein 7.4 g/dL (6.2-8.2)
== END | disposition home or self-care (01) ==
LOC: LABWHC1 16:33
PROVIDERS: ATTEND Surgery
DX: E66.01 Morbid (severe) obesity due to excess calories (principal); Z98.84 Bariatric surgery status; K90.89 Other intestinal malabsorption; E55.9 Vitamin D deficiency, unspecified
CPT/HCPCS: 36415; 80053; 82306; 84443; 85025

== ENCOUNTER → 2021-12-08 | Outpatient (CLI) | payer BC ==
--- NOTE | 2021-12-08 17:41 | P.BASOAP ---
Subjective Progress Note Date: 12/08/21 Principal diagnosis: Morbid obesity Patient returns for reevaluation. Doing well since last visit. Some constipation. She has she has been walking a bit more than previous. He has lost 8 pounds since her last visit on 11/17. No pain. No heartburn. Remains on antiacids. Objective - Exam Abdomen: Soft, nontender, nondistended Assessment/Plan (1) Morbid obesity with BMI of 60.0-69.9, adult Narrative/Plan: Patient doing fairly well at this time. Will increase her activity level. Asked her to set a goal from a step she will do daily. We'll have the dietitian contact her to discuss carb intake volume. Stay on antiacids for now. Check one month labs. Follow-up 4-6 weeks. Plan: Date: Initial Weight: 179.849 kg Initial BMI: Current Weight: Current BMI: Type of Surgery: Total Volume in Band: Previous Volume: Volume Removed: Volume Added: Band Size:
[2021-12-09 13:01] VITALS: BP 145/85; PULSE 84; TEMP 98.1; BMI 55.8
== END ==
LOC: BARWHC3 14:42
PROVIDERS: ATTEND Surgery
DX: E66.01 Morbid (severe) obesity due to excess calories (principal); K59.00 Constipation, unspecified; Z88.1 Allergy status to other antibiotic agents; Z88.5 Allergy status to narcotic agent; Z88.8 Allergy status to other drugs, medicaments and biological substances; Z68.44 Body mass index [BMI] 60.0-69.9, adult
CPT/HCPCS: 82607; 82746; 83540; 84425; 99211

== ENCOUNTER → 2022-01-19 | Outpatient (CLI) | payer BC ==
[2022-01-19 12:41] VITALS: BP 158/80; PULSE 76; RESP 16; TEMP 99; BMI 52.6
--- NOTE | 2022-01-19 13:05 | P.BASOAP ---
Subjective Progress Note Date: 01/19/22 Principal diagnosis: Morbid obesity Patient returns for recheck. She was last seen 12/08. Still having some issues with constipation. Patient did not start taking the MiraLAX that we discussed yet. She states she will begin that now. She does have a family history of colon cancer. Her maternal grandmother and colon polyps in her mother. Denies rectal bleeding. She had recent lab work done in her iron was 38. She has lost 20 pounds since her last visit. She says she has been walking more but still having bilateral knee pain. Having a bilateral knee injection this week. Patient no longer taking antiacids. No Heartburn. Objective - Vital Signs Vital signs: Vital Signs Temp 99 F 01/19/22 12:38 Pulse 76 01/19/22 12:38 Resp 16 01/19/22 12:38 BP 158/80 01/19/22 12:38 Pulse Ox FiO2 Intake & Output 01/18/22 01/19/22 01/19/22 18:59 06:59 18:59 Weight 147.871 kg - Exam Abdomen: Soft, nontender, nondistended Assessment/Plan (1) Morbid obesity with BMI of 60.0-69.9, adult Narrative/Plan: Patient doing well at this time after recent sleeve gastrectomy. BMI down to 52 at this time. Continue increasing activity and monitoring oral intake. Will tentatively schedule colonoscopy for change in bowel habits in the next month or 2. Patient is not interested in supplemental iron at this time because of her ongoing constipation. We'll recheck lab work when we see the patient next 4-6 weeks from now. Continue increasing activity. Plan: Date: 01/19/22 Initial Weight: 179.849 kg Initial BMI: 64.0 Current Weight: 147.871 kg Current BMI: 52.6 Type of Surgery: Total Volume in Band: Previous Volume: Volume Removed: Volume Added: Band Size:
== END ==
LOC: BARWHC3 12:29
PROVIDERS: ATTEND Surgery
DX: E66.01 Morbid (severe) obesity due to excess calories (principal); Z68.43 Body mass index [BMI] 50.0-59.9, adult; Z98.84 Bariatric surgery status; Z71.3 Dietary counseling and surveillance; Z88.5 Allergy status to narcotic agent; Z88.1 Allergy status to other antibiotic agents
CPT/HCPCS: 97803; 99211

== ENCOUNTER → 2022-02-23 | Outpatient (CLI) | payer BC ==
[2022-02-23 13:10] VITALS: BP 145/95; PULSE 80; TEMP 98.3; BMI 50.1
--- NOTE | 2022-02-23 13:31 | P.BASOAP ---
Subjective Progress Note Date: 02/23/22 Principal diagnosis: Morbid obesity Patient returns for bariatric evaluation. Doing well since last visit on 01/18. She has lost 15 pounds since then. Her knee pain is better after her knee injections. Her constipation unfortunately persists and may be slightly worse. She says she has some hard stools at times. She is taking 1 teaspoon MiraLAX once daily. She is scheduled for colonoscopy later this month. Family history of colon cancer. Patient recently stopped her multivitamins because there were 2 suite. Still complains that she has a significant appetite. No nausea or vomiting. Objective - Vital Signs Vital signs: Vital Signs Temp 98.3 F 02/23/22 13:06 Pulse 80 02/23/22 13:06 Resp BP 145/95 02/23/22 13:06 Pulse Ox FiO2 Intake & Output 02/22/22 02/23/22 02/23/22 18:59 06:59 18:59 Weight 141.067 kg - Exam Physical exam: General: Well-developed, well-nourished HEENT: Normocephalic, sclerae nonicteric Abdomen: Nontender, nondistended Extremities: No edema Neuro: Alert and oriented Assessment/Plan (1) Morbid obesity with BMI of 60.0-69.9, adult Narrative/Plan: Patient doing better with her weight loss. Unfortunately still is hungry at times. We'll proceed with colonoscopy for family history of colon cancer and change in bowel habits later this month. We'll check three-month labs. Return visit in 6 weeks. Plan: Date: 02/23/22 Initial Weight: 179.849 kg Initial BMI: 64.0 Current Weight: 141.067 kg Current BMI: 50.1 Type of Surgery: Total Volume in Band: Previous Volume: Volume Removed: Volume Added: Band Size:
[2022-02-23 18:58] LABS: HCT 43.3 % (37.2-46.3); HGB 13.8 g/dL (12.0-15.0); MCH 30.6 pg (27.0-32.0); MCHC 31.9 g/dL (32.0-37.0); Mean Platelet Volume 11.6 fL (9.5-12.2); NRBC Per 100 WBC 0 /100 WBCS (0.0-0.0); Platelet Count 244 X 10*3/uL (140-440); RBC 4.51 X 10*6/uL (4.10-5.20); WBC 6.43 X 10*3/uL (4.50-10.00)
[2022-02-23 19:07] LABS: African American GFR (CKD) 101.8 (60.0-200.0); Albumin 4.2 g/dL (3.8-4.9); Albumin/Globulin Ratio 1.35 (1.60-3.17); Anion Gap 10.4 mmol/L (10.00-18.00); BUN/Creat Ratio 14.38 Ratio (12.00-20.00); Blood Urea Nitrogen 11.5 mg/dL (9.0-27.0); Carbon Dioxide 26.6 mmol/L (20.0-27.5); Globulin 3.1 g/dL (1.6-3.3); Non-African American GFR(CKD) 87.8 (60.0-200.0); Total Bilirubin 0.6 mg/dL (0.30-1.20); Total Protein 7.3 g/dL (6.2-8.2)
== END ==
LOC: BARWHC3 12:55
PROVIDERS: ATTEND Surgery
DX: E66.01 Morbid (severe) obesity due to excess calories (principal); Z68.43 Body mass index [BMI] 50.0-59.9, adult; Z88.1 Allergy status to other antibiotic agents; Z88.5 Allergy status to narcotic agent; Z88.8 Allergy status to other drugs, medicaments and biological substances
CPT/HCPCS: 80053; 82306; 82607; 82746; 83540; 84425; 85027; 99211

== ENCOUNTER 2022-03-09 10:49 | Day surgery (SDC) | payer BC ==
[~2022-03-09 10:49] MED LIST changes: -ENOXAPARIN 40 MG/0.4 ML SYRINGE SQ PRN; +LACTATED RINGERS 1,000 ML IV SCH; -MIDAZOLAM 2 MG/2 ML VIAL IV PRN; -ONDANSETRON 4 MG/2 ML VIAL IVP ONE; +ONDANSETRON 4 MG/2 ML VIAL IVP PRN; -ceFAZolin 3 GM in SODIUM CHLORIDE 0.9% 100 ML IVPB PRN
[2022-03-09 11:22] VITALS: TEMP 97.8
[2022-03-09] MEDS ORDERED: PROPOFOL 10 MG/ML 20 ML VIAL IV ONE (11:38)
[2022-03-09] MEDS ORDERED: LIDOCAINE 2% INJ 20 MG/ML (2 ML VIAL) ONE (11:38)
[2022-03-09 12:09] VITALS: RESP 16
--- NOTE | 2022-03-09 12:11 | P.GSHP ---
History of Present Illness H&P Date: 03/09/22 Chief Complaint: Colon cancer screening 46-year-old female here today for colonoscopy. Patient does have issues with constipation. No rectal bleeding. Takes MiraLAX daily. No family history of colon cancer. Past Medical History Past Medical History: Asthma, Hypertension, Osteoarthritis (OA), Sleep Apnea/CPAP/BIPAP Additional Past Medical History / Comment(s): degenerative disc disease, "bad knees", heart murmer, no cpap used-sleeps elevated, IBS, "dumping syndrome", COVD 10/2020, History of Any Multi-Drug Resistant Organisms: None Reported Past Surgical History: Back Surgery, Bariatric Surgery, Section, Cholecystectomy Additional Past Surgical History / Comment(s): Sleeve gastrectomy 11-02-21, EGD Past Anesthesia/Blood Transfusion Reactions: Motion Sickness Additional Past Anesthesia/Blood Transfusion Reaction / Comment(s): severe motion sickness, Smoking Status: Never smoker - Past Family History Mother Family Medical History: Cancer Father Family Medical History: Cancer Medications and Allergies Home Medications Medication Instructions Recorded Confirmed Type Multivit with Calcium,Iron,Min 1 tab PO DAILY 01/19/22 03/09/22 History [Women's Multivitamin] Calcium Citrate/Vitamin D3 1 each PO BID 03/08/22 03/09/22 History [Citracal + D Maximum Caplet] Allergies Allergy/AdvReac Type Severity Reaction Status Date / Time droperidol Allergy FEELING OF Verified 03/09/22 11:05 ELECTRICAL CURRENT GOING INTO BODY " levofloxacin [From Levaquin] AdvReac jara/emoti Verified 03/09/22 11:05 onal meperidine [From Demerol] AdvReac Rash/Hives Verified 03/09/22 11:05 Surgical - Exam Vital Signs Temp Pulse Resp BP Pulse Ox 97.8 F 77 20 164/77 96 03/09/22 11:19 03/09/22 11:19 03/09/22 11:19 03/09/22 11:19 03/09/22 11:19 Physical exam: General: Well-developed, well-nourished HEENT: Normocephalic, sclerae nonicteric Abdomen: Nontender, nondistended Extremities: No edema Neuro: Alert and oriented Assessment and Plan (1) Colon cancer screening Narrative/Plan: Will proceed with colonoscopy at this time. Current Visit: Yes Status: Acute Code(s): Z12.11 - ENCOUNTER FOR SCREENING FOR MALIGNANT NEOPLASM OF COLON SNOMED Code(s): 259525669
--- NOTE | 2022-03-09 12:23 | P.PCN ---
Date of Procedure: 03/09/22 Procedure(s) Performed: PREOPERATIVE DIAGNOSIS: Colon cancer screening POSTOPERATIVE DIAGNOSIS: Sigmoid colon polyp PROCEDURE: Colonoscopy with snare polypectomy ANESTHESIA: MAC SURGEON: Leeroy Cooper M.D. SPECIMENS: Polyp ENDOSCOPIC PROCEDURE: The patient was placed on the endoscopy table in the left decubitus position. The Olympus colonoscope was inserted into the anus and passed under direct visualization to the base of the cecum. The appendiceal orifice was visualized. From that point the scope was slowly withdrawn inspecting all surfaces carefully. There were no neoplastic inflammatory or polypoid lesions throughout the cecum, ascending, transverse, and descending colon. In the sigmoid colon at 30 cm there was a small indurated polyp measuring 6 mm. This was removed using the snare with cautery technique. The remainder of the sigmoid and rectum appeared normal. There was no visible diverticulosis. Digital rectal examination was normal. The patient was taken to the recovery room in stable condition per anesthesia guidelines. RECOMMENDATIONS: Await biopsy results. Anticipate repeat colonoscopy 5 years.
[2022-03-09 12:40] VITALS: BP 136/83; PULSE 73
== END 2022-03-09 13:12 | disposition home or self-care (01) ==
LOC: ORWHC2ENDO 10:49
PROVIDERS: ATTEND Surgery
DX: Z12.11 Encounter for screening for malignant neoplasm of colon (principal); D12.5 Benign neoplasm of sigmoid colon; J45.909 Unspecified asthma, uncomplicated; I10 Essential (primary) hypertension; M19.90 Unspecified osteoarthritis, unspecified site; G47.33 Obstructive sleep apnea (adult) (pediatric); R01.1 Cardiac murmur, unspecified; K58.9 Irritable bowel syndrome, unspecified; K91.1 Postgastric surgery syndromes; Z90.49 Acquired absence of other specified parts of digestive tract; Z98.84 Bariatric surgery status; Z88.5 Allergy status to narcotic agent; Z88.3 Allergy status to other anti-infective agents; Z88.8 Allergy status to other drugs, medicaments and biological substances; E66.01 Morbid (severe) obesity due to excess calories; Z68.43 Body mass index [BMI] 50.0-59.9, adult; Z80.51 Family history of malignant neoplasm of kidney
CPT/HCPCS: 81025; 88305; 45385; J2704; J2001

== ENCOUNTER → 2022-06-08 | Outpatient (CLI) | payer BC ==
[2022-06-08 14:07] VITALS: BP 121/74; PULSE 82; RESP 16; TEMP 99.3; BMI 45.6
--- NOTE | 2022-06-08 14:37 | P.BASOAP ---
Subjective Progress Note Date: 06/08/22 Principal diagnosis: Morbid obesity Patient returns for 6 month recheck. Doing well. Still has issues with hunger at times. Constipation somewhat improved. Underwent colonoscopy in February. 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 Repeat colonoscopy 3 years was advised. She has no GERD symptoms. No nausea or vomiting. She does not take PPIs. Patient was complaining of a bulge beneath her sternum which turned out to be her xiphoid process. She is due for 6 month labs. Objective - Vital Signs Vital signs: Vital Signs Temp 99.3 F 06/08/22 14:05 Pulse 82 06/08/22 14:05 Resp 16 06/08/22 14:05 BP 121/74 06/08/22 14:05 Pulse Ox FiO2 Intake & Output 06/07/22 06/08/22 06/08/22 18:59 06:59 18:59 Weight 128.367 kg - Exam Abdomen: Soft, nontender, nondistended, slightly prominent xiphoid Assessment/Plan (1) Morbid obesity with BMI of 60.0-69.9, adult Narrative/Plan: Patient doing well at this time. Continue dietary and exercise regimen. Check 6 month labs. Follow-up here in the office 2 months. Plan: Date: 06/08/22 Initial Weight: 179.849 kg Initial BMI: 64.0 Current Weight: 128.367 kg Current BMI: 45.6 Type of Surgery: Vertical Sleeve Gastrectomy Total Volume in Band: Previous Volume: Volume Removed: Volume Added: Band Size:
== END | disposition home or self-care (01) ==
LOC: BARWHC3 13:47
PROVIDERS: ATTEND Surgery
DX: E66.01 Morbid (severe) obesity due to excess calories (principal)
CPT/HCPCS: 99211